=== PATIENT | female | born 1970 | race Caucasian/White ===

== ENCOUNTER 2022-09-30 17:38 | Inpatient (IN) | payer OTHER, SELFPAY ==
--- NOTE | ~2022-09-30 | CT_ITS ---
EXAMINATION: CT ABDOMEN AND PELVIS WITHOUT CONTRAST CLINICAL INFORMATION: Epigastric pain. Left upper quadrant pain. COMPARISON: Ultrasound abdomen 09/30/2022 TECHNIQUE: Multidetector volumetric imaging was performed from the superior aspect of the liver through the pubic symphysis. Sagittal and coronal reformatted images were obtained on the technologist's workstation. This CT examination was performed using dose optimization techniques as appropriate, variously including the following: *Automated exposure control *Adjustment of mA and/or kV according to patient size (this includes techniques or standardized protocols for targeted exams where dose is matched to indication/reason for exam; i.e. extremities or head) *Use of iterative reconstruction technique DLP: 1187 mGy-cm FINDINGS: LUNG BASES: The visualized lung bases are unremarkable. LIVER, GALLBLADDER, AND BILIARY TREE: The liver is normal in size, shape, and attenuation. No focal hepatic lesion or biliary ductal dilatation is present. Gallstones within the gallbladder. No edema around the gallbladder. No bile duct dilatation. PANCREAS: Unremarkable. SPLEEN: Unremarkable. ADRENAL GLANDS: Unremarkable. KIDNEYS AND URETERS: The kidneys are normal in size, shape, and attenuation. No hydronephrosis, hydroureter, or calculi seen. No perinephric stranding. BLADDER: Unremarkable. GASTROINTESTINAL TRACT: The small and large bowel are unremarkable. Moderate volume of stool in the colon. Most of formed stool is in the right colon. The appendix is unremarkable. ABDOMINAL WALL: No significant hernia is appreciated. LYMPH NODES: Normal. VASCULAR: Vascular calcifications of aorta and iliac arteries. No aneurysm. PELVIC VISCERA: Uterus is anteverted. No adnexal abnormality. OSSEOUS STRUCTURES: Multilevel degenerative spondylosis spine. Vacuum disc phenomenon L5-S1. No spondylolysis or spondylolisthesis. CT/CT abdomen pelvis wo IV con IMPRESSION: 1. No acute abnormality CT scan abdomen pelvis. 2. Cholelithiasis. No acute change of the gallbladder. No bile duct dilatation. Fleischner guidelines were followed.
--- NOTE | ~2022-09-30 | US_ITS ---
EXAMINATION: US ABDOMEN LIMITED CLINICAL INFORMATION: Right upper quadrant pain. COMPARISON: None available. TECHNIQUE: Real-time imaging of the right upper quadrant abdominal viscera. FINDINGS: PANCREAS: The visualized proximal portion of the pancreas is unremarkable. The distal portion is obscured secondary to overlying bowel gas. LIVER: The liver is normal in size. The liver contour is normal. There is increased liver parenchymal echogenicity, consistent with hepatic steatosis. No focal hepatic lesion. There is no intrahepatic biliary duct dilatation seen. GALLBLADDER: Cholelithiasis is noted. No significant gallbladder wall thickening or surrounding inflammation. COMMON BILE DUCT: Normal in caliber measuring 0.3 cm in diameter. RIGHT KIDNEY: No hydronephrosis. No renal calculi or focal parenchymal lesions. The kidney measures 12.1 cm in maximum dimension. FREE FLUID: None. US/US abdomen limited IMPRESSION: 1. Cholelithiasis without additional findings of cholecystitis. 2. Hepatic steatosis.
--- NOTE | 2022-09-30 17:55 | ED_ITS ---
HPI - Abdominal Pain General Chief Complaint: Abdominal Pain Stated Complaint: gallbladder pain? Time Seen by Provider: 09/30/22 20:25 Source: patient Mode of arrival: ambulatory Limitations: no limitations History of Present Illness HPI narrative: Patient is a 52 year old female with a history of gallstones, type 2 diabetes with hx of DKA presenting with epigastric pain and nausea after eating for the past week and constipation for the past month. She reports that after eating she experiences pain in the epigastric region with nausea but denies vomitting. She began a keto diet one month ago and has had constipation ever since with minimal relief with miralax. She reports her last bowel movement being yesterday and a history of incidental gallstone finding on CT last year, however has never been symptomatic or received treatment for it. She denies chest pain, shortness of breath, vomiting, changes in urine, headaches, dizziness. Related Data Allergies Allergy/AdvReac Type Severity Reaction Status Date / Time No Known Allergies Allergy Verified 09/30/22 18:01 Review of Systems Review of Systems Constitutional : + Weight loss, No Fever, No Chills, No Fatigue, No Malaise Cardiovascular : No Chest Pain, No SOB, No Dyspnea on Exertion, No Orthopnea, No Edema, No Palpitations Respiratory : No Cough, No Sputum, No Wheezing Gastrointestinal : + Nausea, No Vomiting, No Diarrhea, + Constipation, + abdominal Pain, No Hematochezia, No Melena Genitourinary : No Dysuria, No Urinary Frequency, No Hematuria, Musculoskeletal : No joint pain, No Myalgias, No Joint Swelling Skin : No Skin Lesions, No rash Neuro : No Weakness, No Numbness, No Dizziness, No Headache Psych : No Anxiety/Panic, No Depression All other systems reviewed and are negative Yes all other systems are reviewed and are negative [facility] Past Medical History Attestation statement: The following information was validated with the patient. Source: old records reviewed and nursing notes reviewed Social History Social History Advance Directives: No Advance Directives Information Provided: No Physical Exam ED Vital Signs: Vital Signs - 24 hr 09/30/22 17:56 09/30/22 22:52 Temperature 97.4 F 98.2 F Pulse Rate 99 82 Respiratory Rate 20 16 Blood Pressure 190/100 H 137/60 Pulse Oximetry 98 98 Oxygen Delivery Method Room Air Room Air BMI result Body Mass Index 48.6 vss Appearance: Alert.? Oriented X3.? No acute distress.? Head: Normocephalic, atraumatic, no step-offs or deformities Eyes: Pupils equal, round and reactive to light.? ENT: Pharynx normal.? Neck: Normal inspection.? Neck supple.? CVS: Normal heart rate and rhythm.? Pulses normal.? Respiratory: No respiratory distress.? Breath sounds normal.? Abdomen: Soft without abdominal tenderness to palpation. Normoactive bowel sounds. Skin: Skin warm and dry.? Normal skin color.? Normal skin turgor.? Extremities: No lower extremity edema.? No calf ttp. 5/5 strength to bilateral upper and lower extremities Neuro: Oriented X 3.? No motor deficit.? No sensory deficit. CN 2-12 intact Course Course Course Narrative: RME - 50 yo female with history of morbid obesity, history of gallstones, diabetes w/ hx DKA now off insulin who presents to the ER for evaluation of constipation x1 month along with RUQ pain on/off for a week. Pain is worse with food and affecting her sleep. +nausea but no vomiting. last had BM today, very light colored and minimal. Also reports right shoulder and right scapular pain. Glucose has been in the 400s at home. They are here visiting from [place] and go home next week. Plan: POC now, labs and RUQ U/S Reevaluation(s) Reevaluation #1: CBC unremarkable. POC glucose 324. Chemistry remarkable for BUN 8, anion gap 23, random glucose 346. Time: 21:28 Reevaluation #2: Abdominal ultrasound shows cholelithiasis without additional findings of cholecystitis and hepatic steatosis. Patient has a negative Lay sign, no tenderness to palpation on my exam, I do not suspect acute cholecystitis no signs of acute choledocholithiasis or cholangitis. Time: 21:28 Medical Decision Making Medical Decision Making [facility] Narrative: 2120 Patient is a 52 year old female presenting with epigastric pain and nausea after eating for one week and constipation for one month after beginning keto diet. Physical exam benign Differential diagnosis includes acute cholecystitis, pain likely secondary to constipation. Other differentials include DKA, gastritis.. Unlikely cholangitis, choledocholithiasis, diverticulitis, pancreatitis, appendicitis, acute abdomen. Plan labs, imaging, urine. Differential Diagnosis Differential Diagnoses: The differential diagnosis associated with the presen tation includes Differential diagnosis includes acute cholecystitis, pain likely secondary to constipation. Other differentials include DKA, gastritis.. Unlikely cholangitis, choledocholithiasis, diverticulitis, pancreatitis, appendicitis, acute abdomen. Admission/Observation Consideration of admission/observation: Escalation of care including admission/observation considered Lab Data MDM Lab Attestation statement: I reviewed the patient's lab results. 09/30/22 18:45 09/30/22 18:45 Labs: Lab Results 09/30/22 09/30/22 09/30/22 Range/Units 18:05 18:45 18:45 WBC 9.1 (4.8-10.8) X10*3/uL RBC 5.55 H (4.20-5.50) X10*6/uL Hgb 15.9 (12.0-16.0) g/dl Hct 47.7 H (37.0-47.0) % MCV 85.9 (80.0-98.0) fL MCH 28.6 (27.0-33.0) pg MCHC 33.3 (31.0-35.0) g/dl RDW 13.3 (11.0-16.0) % Plt Count 296 (160-400) X10*3/uL MPV 10.2 (9.4-12.3) fL Immature Gran % (Auto) 0.5 H (0.0-0.4) % Neut % (Auto) 64.8 (45-73) % Lymph % (Auto) 25.4 (20-40) % [place] % (Auto) 7.3 (2-11) % Eos % (Auto) 1.3 (0-4) % Baso % (Auto) 0.7 (0-2) % Lymph # (Auto) 2.3 (1.2-4.9) X10*3/uL [place] # (Auto) 0.7 (0.1-1.2) X10*3/uL Eos # (Auto) 0.1 (0.0-0.4) X10*3/uL Baso # (Auto) 0.1 (0.0-0.2) X10*3/uL Abs Immat Gran (auto) 0.05 H (0.00-0.03) X10*3/uL Absolute Neuts (auto) 5.9 (2.0-8.3) x10*3/uL Absolute Nucleated RBC 0.000 (0.0-0.012) X10*3/uL Nucleated RBC % (auto) 0.0 (0.0-0.2) /100WBC Sodium 135 (135-145) mmol/L Potassium 4.1 (3.3-5.1) mmol/L Chloride 100 (96-108) mmol/L Carbon Dioxide 16 L (22-29) mmol/L Anion Gap 23 H (12-20) BUN 8 L (9-16) mg/dL Creatinine 1.22 (0.5-1.4) mg/dL Estim Creat Clear Calc 74.2 Estimated GFR 46 POC Glucose 307 H (60-115) mg/dL Random Glucose 346 H (60-115) mg/dL Calcium 10.1 (8.4-10.2) mg/dL Magnesium 1.9 (1.6-2.6) mg/dL Total Bilirubin 0.4 (0.0-1.0) mg/dL Direct Bilirubin 0.1 (0.0-0.5) mg/dL AST 12 (5-31) U/L ALT 15 (0-31) U/L Alkaline Phosphatase 96 (39-117) U/L Total Protein 7.3 (6.5-8.0) g/dL Albumin 4.1 (3.5-5.0) g/dL Urine Color Urine Appearance Urine pH (5.0-9.0) Ur Specific [place] (1.005-1.025) Urine Protein (Neg-Trace) mg/dL Urine Glucose (UA) (Negative) mg/dL Urine Ketones (Negative) mg/dL Urine Blood (Negative) Urine Nitrite (Negative) Ur Leukocyte Esterase (Negative) Urine RBC (0-2) /HPF Urine WBC (0-5) /HPF Ur Squamous Epith Cells (0-2) /HPF Urine Bacteria (None Seen) Hyaline Casts (0-2) /LPF Acetone, Qual (Negative) 09/30/22 09/30/22 09/30/22 Range/Units 21:15 21:27 21:58 WBC (4.8-10.8) X10*3/uL RBC (4.20-5.50) X10*6/uL Hgb (12.0-16.0) g/dl Hct (37.0-47.0) % MCV (80.0-98.0) fL MCH (27.0-33.0) pg MCHC (31.0-35.0) g/dl RDW (11.0-16.0) % Plt Count (160-400) X10*3/uL MPV (9.4-12.3) fL Immature Gran % (Auto) (0.0-0.4) % Neut % (Auto) (45-73) % Lymph % (Auto) (20-40) % [place] % (Auto) (2-11) % Eos % (Auto) (0-4) % Baso % (Auto) (0-2) % Lymph # (Auto) (1.2-4.9) X10*3/uL [place] # (Auto) (0.1-1.2) X10*3/uL Eos # (Auto) (0.0-0.4) X10*3/uL Baso # (Auto) (0.0-0.2) X10*3/uL Abs Immat Gran (auto) (0.00-0.03) X10*3/uL Absolute Neuts (auto) (2.0-8.3) x10*3/uL Absolute Nucleated RBC (0.0-0.012) X10*3/uL Nucleated RBC % (auto) (0.0-0.2) /100WBC Sodium (135-145) mmol/L Potassium (3.3-5.1) mmol/L Chloride (96-108) mmol/L Carbon Dioxide (22-29) mmol/L Anion Gap (12-20) BUN (9-16) mg/dL Creatinine (0.5-1.4) mg/dL Estim Creat Clear Calc Estimated GFR POC Glucose 324 H (60-115) mg/dL Random Glucose (60-115) mg/dL Calcium (8.4-10.2) mg/dL Magnesium (1.6-2.6) mg/dL Total Bilirubin (0.0-1.0) mg/dL Direct Bilirubin (0.0-0.5) mg/dL AST (5-31) U/L ALT (0-31) U/L Alkaline Phosphatase (39-117) U/L Total Protein (6.5-8.0) g/dL Albumin (3.5-5.0) g/dL Urine Color Yellow Urine Appearance Clear Urine pH 5.5 (5.0-9.0) Ur Specific [place] >= 1.030 H (1.005-1.025) Urine Protein 100 (2+) H (Neg-Trace) mg/dL Urine Glucose (UA) >=1000 H (Negative) mg/dL Urine Ketones >=160 (Negative) mg/dL Urine Blood Negative (Negative) Urine Nitrite Negative (Negative) Ur Leukocyte Esterase Negative (Negative) Urine RBC 0-2 (0-2) /HPF Urine WBC 0-5 (0-5) /HPF Ur Squamous Epith Cells 3-5 (0-2) /HPF Urine Bacteria None Seen (None Seen) Hyaline Casts 11-20 (0-2) /LPF Acetone, Qual Small H (Negative) Independent Interpretation I performed an independent interpretation of an: Ultrasound (US/US abdomen limited IMPRESSION: 1. Cholelithiasis without additional findings of cholecystitis. 2. Hepatic steatosis. ) and CT Scan Radiology Impression Discussion of test interpretation with radiology: I have reviewed the radiologist's reading. External Record Review External record reviewed: Inpatient record, Office record, Outpatient record, Prior outpatient labs, Primary care record and Outside ED record Core Measures AMI core measures followed: Yes Measure exclusions: not indicated Medications Administered Generic Name Dose Route Start Last Admin Trade Name Freq PRN Reason Stop Dose Admin Sodium Chloride 1,000 mls @ 999 mls/hr 09/30/22 22:30 09/30/22 22:33 Ns IV 09/30/22 23:30 999 mls/hr .Q1H1M CINTHIA Administration Discontinued Medications Generic Name Dose Route Start Last Admin Trade Name Freq PRN Reason Stop Dose Admin Docusate Sodium 100 mg 09/30/22 22:46 09/30/22 23:06 Docusate Sodium 100 Mg Capsule PO 09/30/22 22:47 100 mg ONCE ONE Administration Sodium Chloride 1,000 mls @ 999 mls/hr 09/30/22 20:30 09/30/22 21:22 Ns IV 09/30/22 21:30 999 mls/hr .Q1H1M CINTHIA Administration Insulin Human Regular 5 unit 09/30/22 22:25 09/30/22 22:31 Insulin Regular, Human 100 Unit/Ml 3 Ml Vial IVPUSH 09/30/22 22:26 5 unit ONCE ONE Administration Ketorolac Tromethamine 30 mg 09/30/22 21:40 09/30/22 22:25 Ketorolac Tromethamine 15 Mg/Ml Vial IM 09/30/22 21:41 Not Given ONCE ONE Senna 15 ml 09/30/22 22:46 09/30/22 23:06 Senna [place] Extract Oral Syrup 15 Ml Syrup PO 09/30/22 22:47 15 ml ONCE ONE Administration Critical Care Time Critical Care Time Critical Care Time: No Discharge Plan Discharge Clinical Impression: Abdominal pain, DKA (diabetic ketoacidosis), Cholelithiasis Patient Disposition: Admitted As Inpatient
[2022-09-30 17:56] VITALS: BP 190/100; PULSE 99; RESP 20; TEMP 36.3; O2SAT 98; BMI 48.6
[2022-09-30 18:10] LABS: Glucose, Whole Blood 307 mg/dL (60-115)
[2022-09-30 18:51] LABS: MANUAL DIFF FLAG NO
[2022-09-30 18:52] LABS: Basophils Absolute Auto 0.1 X10*3/uL (0.0-0.2); Basophils Percent Auto 0.7 % (0-2); Eosinophils Absolute Auto 0.1 X10*3/uL (0.0-0.4); Eosinophils Percent Auto 1.3 % (0-4); Hematocrit 47.7 % (37.0-47.0); Hemoglobin 15.9 g/dl (12.0-16.0); Imm Gran Abs Auto 0.05 X10*3/uL (0.00-0.03); Imm Gran Pct Auto 0.5 % (0.0-0.4); Lymphocytes Absolute Auto 2.3 X10*3/uL (1.2-4.9); Lymphocytes Percent Auto 25.4 % (20-40); Mean Corpuscular HGB Conc 33.3 g/dl (31.0-35.0); Mean Corpuscular Hemoglobin 28.6 pg (27.0-33.0); Mean Corpuscular Volume 85.9 fL (80.0-98.0); Mean Platelet Volume 10.2 fL (9.4-12.3); Monocytes Absolute Auto 0.7 X10*3/uL (0.1-1.2); Monocytes Percent Auto 7.3 % (2-11); Neutrophils Absolute Auto 5.9 x10*3/uL (2.0-8.3); Neutrophils Percent Auto 64.8 % (45-73); Platelet Count 296 X10*3/uL (160-400); Red Blood Count 5.55 X10*6/uL (4.20-5.50); Red Cell Distribution Width 13.3 % (11.0-16.0); White Blood Count 9.1 X10*3/uL (4.8-10.8)
[2022-09-30 19:11] LABS: Alanine Aminotransferase 15 U/L (0-31); Albumin Level 4.1 g/dL (3.5-5.0); Alkaline Phosphatase 96 U/L (39-117); Anion Gap 23 (12-20); Aspartate Amino Transferase 12 U/L (5-31); Bilirubin Direct 0.1 mg/dL (0.0-0.5); Bilirubin Total 0.4 mg/dL (0.0-1.0); Blood Urea Nitrogen 8 mg/dL (9-16); Calcium 10.1 mg/dL (8.4-10.2); Carbon Dioxide 16 mmol/L (22-29); Chloride 100 mmol/L (96-108); Creatinine Clr Calc Pharmacy 74.2; Estimated Glomerular Filt Rate 46; Glucose Random 346 mg/dL (60-115); Magnesium 1.9 mg/dL (1.6-2.6); Potassium 4.1 mmol/L (3.3-5.1); Sodium 135 mmol/L (135-145); Total Protein 7.3 g/dL (6.5-8.0)
[2022-09-30 21:21] LABS: Glucose, Whole Blood 324 mg/dL (60-115)
[2022-09-30] MEDS: 0.9 % Sodium Chloride 1,000 ML 999 ML IV ×2 (21:22→22:33)
[2022-09-30 21:37] LABS: Appearance Urine Clear; Color Urine Yellow; Glucose Urine UA >=1000 mg/dL (Negative); Leukocyte Esterase Urine Negative (Negative); Nitrite Urine Negative (Negative); PH 5.5 (5.0-9.0); Specific Gravity - Urine >= 1.030 (1.005-1.025); UMIC TRIGGER UACC YES; Urine Blood Negative (Negative); Urine Ketones >=160 mg/dL (Negative); Urine Protein 100 (2+) mg/dL (Neg-Trace)
[2022-09-30 21:44] LABS: Bacteria Urine None Seen (None Seen); RBC Urine 0-2 /HPF (0-2); WBC Urine 0-5 /HPF (0-5)
[2022-09-30 22:16] LABS: Acetone, serum QL Small (Negative)
[2022-09-30] MEDS: Insulin Regular, Human 100 UNIT/ML 3 ML VIAL IVPUSH (22:31)
[2022-09-30 22:52] VITALS: BP 137/60; PULSE 82; RESP 16; TEMP 36.8; O2SAT 98
[2022-09-30] MEDS: Docusate Sodium 100 MG CAPSULE PO (23:06)
[2022-09-30 23:45] LABS: Lipase 25 U/L (8-78)
[2022-09-30 23:56] LABS: VBG Base Excess -11.3 mmol/L; VBG HCO3 10 mmol/L (22-26); VBG pCO2 16 mmHg; VBG pH 7.39 (7.32-7.43); VBG pO2 93 mmHg
[2022-10-01 00:02] LABS: Venous Blood Gas Refer to POC result
[2022-10-01 00:16] LABS: Alanine Aminotransferase 16 U/L (0-31); Albumin Level 3.8 g/dL (3.5-5.0); Alkaline Phosphatase 85 U/L (39-117); Anion Gap 22 (12-20); Aspartate Amino Transferase 13 U/L (5-31); Bilirubin Total 0.4 mg/dL (0.0-1.0); Blood Urea Nitrogen 7 mg/dL (9-16); Calcium 9.4 mg/dL (8.4-10.2); Carbon Dioxide 13 mmol/L (22-29); Chloride 103 mmol/L (96-108); Creatinine Clr Calc Pharmacy 80.9; Estimated Glomerular Filt Rate 51; Glucose Random 332 mg/dL (60-115); Potassium 3.9 mmol/L (3.3-5.1); Sodium 134 mmol/L (135-145); Total Protein 7.3 g/dL (6.5-8.0)
[2022-10-01] MEDS: 0.9 % Sodium Chloride 1,000 ML 999 ML IV ×3 (01:58→01:59)
[2022-10-01] MEDS: Insulin Regular, Human 100 UNIT/ML 3 ML VIAL 10 UNIT IVPUSH ×2 (01:59→03:20)
[2022-10-01 02:06] LABS: Alanine Aminotransferase 12 U/L (0-31); Albumin Level 3.5 g/dL (3.5-5.0); Alkaline Phosphatase 80 U/L (39-117); Anion Gap 21 (12-20); Aspartate Amino Transferase 15 U/L (5-31); Bilirubin Total 0.3 mg/dL (0.0-1.0); Blood Urea Nitrogen 7 mg/dL (9-16); Calcium 9.1 mg/dL (8.4-10.2); Carbon Dioxide 17 mmol/L (22-29); Chloride 104 mmol/L (96-108); Creatinine Clr Calc Pharmacy 67.1; Estimated Glomerular Filt Rate 41; Glucose Random 325 mg/dL (60-115); Potassium 4.7 mmol/L (3.3-5.1); Sodium 137 mmol/L (135-145); Total Protein 6.4 g/dL (6.5-8.0)
[2022-10-01 02:33] VITALS: BP 146/50; PULSE 82; RESP 16; TEMP 36.5; O2SAT 99
--- NOTE | 2022-10-01 02:40 | PC.NURSE ---
med req completed
[2022-10-01 02:57] LABS: Glucose, Whole Blood 272 mg/dL (60-115)
--- NOTE | 2022-10-01 02:58 | PC.NURSE ---
POC of [address] Timmons. New order to give another 10u of insulin and start D5NS at 100mls/hr. Pt aware of plan of care.
--- NOTE | 2022-10-01 03:07 | P.HPHOSP_ITS ---
History of Present Illness Date of Service: 10/01/22 Chief Complaint: Abdominal Pain This is a 52-year-old female with pertinent history of diabetes, not on prescription medications who presents to the emergency department for evaluation of abdominal pain and nausea. Patient states she stopped taking prescription medications for diabetes and instead is trying natural therapy for it. She does have a history of DKA. Patient states she had generalized abdominal discomfort on the day of presentation, nonradiating, constant and without any relieving factors. Also had associated nausea with p.o. intake. Patient states her bowel movements have becoming fewer since she started with keto diet 1 month ago. She denies fever, chills, chest discomfort, palpitations, shortness of breath, changes in urinary habits. In the emergency department, patient was found to be in DKA Review of Systems Constitutional: Constitutional: Reports fatigue and Reports malaise Cardiovascular: Cardiovascular: Reports no additional cardiovascular complaints Respiratory: Respiratory: Reports no additional respiratory complaints Gastrointestinal: Gastrointestinal: Reports abdominal pain and Reports nausea Genitourinary: Genitourinary: Reports no additional female genitourinary complaints Musculoskeletal: Musculoskeletal: Reports no additional musculoskeletal complaints Endocrine: Endocrine: Reports fatigue [facility] Medical History Diabetes mellitus Pertinent family history: No family history of early CAD Social History Patient Tobacco Use Status: Never used Tobacco Meds Allergies Allergy/AdvReac Type Severity Reaction Status Date / Time No Known Allergies Allergy Verified 09/30/22 18:01 Active Medications: Current Medications Dextrose/Sodium Chloride (D5ns) 1,000 mls @ 100 mls/hr IVCONT .Q10H [facility] Insulin Glargine (Insulin Glargine,Hum.Rec.Anlog 100 Unit/Ml 10 Ml Vial) 25 unit SUBCUT BEDTIME [facility] Home Medications Medication Instructions Recorded Confirmed Last Taken Type berberine-herbal comb no.18 500 mg PO BID 10/01/22 10/01/22 Unknown History Physical Exam Vital Signs and Narrative: Vital Signs: Last Vital Signs Temp 97.7 F 10/01/22 02:33 Pulse 82 10/01/22 02:33 Resp 16 10/01/22 02:33 BP 146/50 H 10/01/22 02:33 Pulse Ox 99 10/01/22 02:33 O2 Del Method Room Air 10/01/22 02:33 BMI result Body Mass Index 48.6 Middle-aged female lying in bed in no distress Neck supple, no JVD Regular rate and rhythm, S1-S2 heard Regular breath sounds bilaterally, no wheezing or crackles appreciated Abdomen soft nontender, no guarding, no rigidity Patient is awake, alert and oriented to self, place, time and person ; no focal motor deficit Psych: Normal mood No pedal edema Results Labs 09/30/22 18:45 10/01/22 01:39 Labs: Laboratory Results - last 24 hr 09/30/22 09/30/22 09/30/22 18:05 18:45 18:45 MCV 85.9 MCH 28.6 MCHC 33.3 RDW 13.3 Plt Count 296 MPV 10.2 Immature Gran % (Auto) 0.5 H Neut % (Auto) 64.8 Lymph % (Auto) 25.4 [place] % (Auto) 7.3 Eos % (Auto) 1.3 Baso % (Auto) 0.7 Lymph # (Auto) 2.3 [place] # (Auto) 0.7 Eos # (Auto) 0.1 Baso # (Auto) 0.1 Abs Immat Gran (auto) 0.05 H Absolute Neuts (auto) 5.9 Absolute Nucleated RBC 0.000 Nucleated RBC % (auto) 0.0 VBG pH VBG pCO2 VBG pO2 VBG HCO3 VBG O2 Saturation VBG Base Excess Anion Gap 23 H Estim Creat Clear Calc 74.2 Estimated GFR 46 POC Glucose 307 H Random Glucose 346 H Calcium 10.1 Magnesium 1.9 Total Bilirubin 0.4 Direct Bilirubin 0.1 AST 12 ALT 15 Alkaline Phosphatase 96 Total Protein 7.3 Albumin 4.1 Lipase 25 Urine Color Urine Appearance Urine pH Ur Specific [place] Urine Protein Urine Glucose (UA) Urine Ketones Urine Blood Urine Nitrite Ur Leukocyte Esterase Urine RBC Urine WBC Ur Squamous Epith Cells Urine Bacteria Hyaline Casts Acetone, Qual 09/30/22 09/30/22 09/30/22 21:15 21:27 21:58 MCV MCH MCHC RDW Plt Count MPV Immature Gran % (Auto) Neut % (Auto) Lymph % (Auto) [place] % (Auto) Eos % (Auto) Baso % (Auto) Lymph # (Auto) [place] # (Auto) Eos # (Auto) Baso # (Auto) Abs Immat Gran (auto) Absolute Neuts (auto) Absolute Nucleated RBC Nucleated RBC % (auto) VBG pH VBG pCO2 VBG pO2 VBG HCO3 VBG O2 Saturation VBG Base Excess Anion Gap Estim Creat Clear Calc Estimated GFR POC Glucose 324 H Random Glucose Calcium Magnesium Total Bilirubin Direct Bilirubin AST ALT Alkaline Phosphatase Total Protein Albumin Lipase Urine Color Yellow Urine Appearance Clear Urine pH 5.5 Ur Specific [place] >= 1.030 H Urine Protein 100 (2+) H Urine Glucose (UA) >=1000 H Urine Ketones >=160 Urine Blood Negative Urine Nitrite Negative Ur Leukocyte Esterase Negative Urine RBC 0-2 Urine WBC 0-5 Ur Squamous Epith Cells 3-5 Urine Bacteria None Seen Hyaline Casts 11-20 Acetone, Qual Small H 09/30/22 09/30/22 09/30/22 21:59 23:48 23:50 MCV MCH MCHC RDW Plt Count MPV Immature Gran % (Auto) Neut % (Auto) Lymph % (Auto) [place] % (Auto) Eos % (Auto) Baso % (Auto) Lymph # (Auto) [place] # (Auto) Eos # (Auto) Baso # (Auto) Abs Immat Gran (auto) Absolute Neuts (auto) Absolute Nucleated RBC Nucleated RBC % (auto) VBG pH 7.39 VBG pCO2 16 VBG pO2 93 VBG HCO3 10 L VBG O2 Saturation 99.0 VBG Base Excess -11.3 Anion Gap 22 H Estim Creat Clear Calc 80.9 Estimated GFR 51 POC Glucose Random Glucose 332 H Calcium 9.4 D Magnesium Total Bilirubin 0.4 Direct Bilirubin AST 13 ALT 16 Alkaline Phosphatase 85 Total Protein 7.3 Albumin 3.8 Lipase Cancelled Urine Color Urine Appearance Urine pH Ur Specific [place] Urine Protein Urine Glucose (UA) Urine Ketones Urine Blood Urine Nitrite Ur Leukocyte Esterase Urine RBC Urine WBC Ur Squamous Epith Cells Urine Bacteria Hyaline Casts Acetone, Qual 10/01/22 10/01/22 01:39 02:34 MCV MCH MCHC RDW Plt Count MPV Immature Gran % (Auto) Neut % (Auto) Lymph % (Auto) [place] % (Auto) Eos % (Auto) Baso % (Auto) Lymph # (Auto) [place] # (Auto) Eos # (Auto) Baso # (Auto) Abs Immat Gran (auto) Absolute Neuts (auto) Absolute Nucleated RBC Nucleated RBC % (auto) VBG pH VBG pCO2 VBG pO2 VBG HCO3 VBG O2 Saturation VBG Base Excess Anion Gap 21 H Estim Creat Clear Calc 67.1 Estimated GFR 41 POC Glucose 272 H Random Glucose 325 H Calcium 9.1 Magnesium Total Bilirubin 0.3 Direct Bilirubin AST 15 ALT 12 Alkaline Phosphatase 80 Total Protein 6.4 L Albumin 3.5 Lipase Urine Color Urine Appearance Urine pH Ur Specific [place] Urine Protein Urine Glucose (UA) Urine Ketones Urine Blood Urine Nitrite Ur Leukocyte Esterase Urine RBC Urine WBC Ur Squamous Epith Cells Urine Bacteria Hyaline Casts Acetone, Qual Imaging Radiologist's Impressions: Impressions Abdomen Ultrasound 09/30/22 18:16 IMPRESSION: 1. Cholelithiasis without additional findings of cholecystitis. 2. Hepatic steatosis. Abdomen/Pelvis CT 09/30/22 22:22 IMPRESSION: 1. No acute abnormality CT scan abdomen pelvis. 2. Cholelithiasis. No acute change of the gallbladder. No bile duct dilatation. Fleischner guidelines were followed. Assessment and Plan (1) DKA (diabetic ketoacidosis): Status: Acute Plan This is a 52-year-old female with pertinent history of diabetes, not on prescription medications who presents to the emergency department for evaluation of abdominal pain and nausea. #. Diabetic ketoacidosis. Due to noncompliance with antihyperglycemics. Noted improvement in bicarb and anion gap with IV crystalloids and IV insulin. Initiating basal plus regimen. Monitor blood glucose and optimize regimen. Counseled regarding compliance with antihyperglycemics. DVT prophylaxis: Lovenox Full code Diabetic diet Admit as inpatient and will require two night minimum hospital stay for close monitoring of blood sugars. Time Spent With Patient Time: Total time managing care of this patient today ____ minutes. Quality Stroke Does the patient have a stroke diagnosis?: No VTE Prior VTE?: No VTE Risk Level:: Medical - moderate - high VTE Device Contraindication: Treatment Not Indicated VTE Drug Contraindication: N/A - Med Ordered
--- NOTE | 2022-10-01 03:09 | PC.NURSE ---
Per Dr. Singleton D5NS to run for at 100mls/hr for the next two hours and then to be stopped. Pt aware of plan of care.
[2022-10-01] MEDS: Dextrose 5 % and 0.9 % NaCl 1,000 ML 100 ML IVCONT (03:18)
[2022-10-01] MEDS: Insulin Glargine,Hum.rec.anlog 100 UNIT/ML 10 ML VIAL 25 UNIT SUBCUT ×2 (03:18→20:35)
[2022-10-01] MEDS: Enoxaparin Sodium 40 MG/0.4 ML SYRINGE SUBCUT (03:45)
[2022-10-01 03:58] LABS: Glucose, Whole Blood 284 mg/dL (60-115)
[2022-10-01 06:11] LABS: MANUAL DIFF FLAG NO
[2022-10-01 06:14] LABS: Basophils Percent Auto 0.4 % (0-2); Eosinophils Absolute Auto 0.1 X10*3/uL (0.0-0.4); Eosinophils Percent Auto 1.3 % (0-4); Hematocrit 43.2 % (37.0-47.0); Hemoglobin 14.2 g/dl (12.0-16.0); Imm Gran Abs Auto 0.04 X10*3/uL (0.00-0.03); Imm Gran Pct Auto 0.4 % (0.0-0.4); Lymphocytes Absolute Auto 2.8 X10*3/uL (1.2-4.9); Mean Corpuscular HGB Conc 32.9 g/dl (31.0-35.0); Mean Corpuscular Volume 88.3 fL (80.0-98.0); Mean Platelet Volume 11.2 fL (9.4-12.3); Monocytes Absolute Auto 0.9 X10*3/uL (0.1-1.2); Monocytes Percent Auto 9.1 % (2-11); Neutrophils Absolute Auto 5.7 x10*3/uL (2.0-8.3); Neutrophils Percent Auto 59.8 % (45-73); Platelet Count 281 X10*3/uL (160-400); Red Blood Count 4.89 X10*6/uL (4.20-5.50); Red Cell Distribution Width 13.6 % (11.0-16.0); White Blood Count 9.5 X10*3/uL (4.8-10.8)
[2022-10-01 06:25] LABS: Estimated Average Glucose 249 mg/dL; Hemoglobin A1c % 10.3 %
[2022-10-01 06:28] LABS: Glucose, Whole Blood 339 mg/dL (60-115)
[2022-10-01] MEDS: ondansetron HCL 4 MG/2 ML VIAL IVPUSH (06:28)
[2022-10-01] MEDS: Insulin Lispro 100 UNIT/ML 3 ML VIAL SUBCUT ×6 (06:28→19:05)
[2022-10-01 06:37] LABS: Chloride 108 mmol/L (96-108); Potassium 4.6 mmol/L (3.3-5.1); Sodium 137 mmol/L (135-145)
[2022-10-01 06:38] LABS: Anion Gap 17 (12-20); Blood Urea Nitrogen 6 mg/dL (9-16); Calcium 8.4 mg/dL (8.4-10.2); Carbon Dioxide 17 mmol/L (22-29); Creatinine Clr Calc Pharmacy 70.2; Estimated Glomerular Filt Rate 43
[2022-10-01 06:39] LABS: Glucose Random 357 mg/dL (60-115)
--- NOTE | 2022-10-01 06:40 | PC.NURSE ---
critical glucose called in by chemistry. glucose of 357. this rn made marcelle rn aware of result. this rn made dr bruce aware of critical result. awaiting new orders
[2022-10-01] MEDS: Insulin Regular, Human 100 UNIT/ML 3 ML VIAL IVPUSH (06:49)
--- NOTE | 2022-10-01 06:51 | PC.NURSE ---
D5NS stopped as ordered. Pt received a total of 100ml of D5NS as pt was ambulatory throughout infusion and infusion was stopped several times.
--- NOTE | 2022-10-01 07:55 | PC.NURSE ---
pct helping pt with adls and checking poc prior to transport to floor
[2022-10-01 08:00] VITALS: BP 141/63; PULSE 82; RESP 16; TEMP 36.1; O2SAT 95
[2022-10-01 08:05] LABS: Glucose, Whole Blood 277 mg/dL (60-115)
[2022-10-01 08:51] LABS: Glucose, Whole Blood 283 mg/dL (60-115)
[2022-10-01] MEDS: Lactated Ringers 1,000 ML 150 ML IVCONT ×3 (08:54→23:56)
--- NOTE | 2022-10-01 09:36 | PHA.MEDREC ---
Pharmacy Consult ? Medication Reconciliation rn has completed the medication reconciliation, PHARMACY REVIEWED.
--- NOTE | 2022-10-01 10:39 | MHC.CM.PN ---
Female 52 DX DKA Patient lives with spouse. They travel for his work. She does not have a PCP. The [facility] for [facility] providers has been given to the patient. She is independent with all functional mobility. DP home self care. Her spouse will pick her up at discharge.
[2022-10-01 11:27] LABS: Glucose, Whole Blood 341 mg/dL (60-115)
[2022-10-01] MEDS: Simethicone 80 MG TAB.CHEW PO (11:38)
[2022-10-01] MEDS: Acetaminophen 325 MG TABLET 650 MG PO (14:30)
[2022-10-01 16:00] VITALS: BP 163/63; PULSE 78; RESP 18; TEMP 36.4; O2SAT 97
[2022-10-01 16:10] LABS: Glucose, Whole Blood 296 mg/dL (60-115)
[2022-10-01 18:41] LABS: Glucose, Whole Blood 399 mg/dL (60-115)
[2022-10-01 19:20] VITALS: BP 157/73; PULSE 87; RESP 19; TEMP 36.3; O2SAT 97
[2022-10-01] MEDS: 0.9 % Sodium Chloride Flush 3 ML SYRINGE IVFLUSH (20:37)
[2022-10-02 00:17] LABS: Glucose, Whole Blood 405 mg/dL (60-115)
[2022-10-02] MEDS: Insulin Lispro 100 UNIT/ML 3 ML VIAL SUBCUT ×7 (00:30→20:49)
[2022-10-02] MEDS: Enoxaparin Sodium 40 MG/0.4 ML SYRINGE SUBCUT (00:31)
[2022-10-02 02:55] LABS: Glucose, Whole Blood 284 mg/dL (60-115)
[2022-10-02 04:00] VITALS: BP 127/61; PULSE 76; RESP 16; TEMP 36.2; O2SAT 96
[2022-10-02 07:02] LABS: Glucose, Whole Blood 271 mg/dL (60-115)
[2022-10-02] MEDS: metFORMIN HCl 500 MG TABLET PO (07:47)
[2022-10-02 07:53] VITALS: BP 137/71; PULSE 66; RESP 16; TEMP 36.6; O2SAT 98
--- NOTE | 2022-10-02 10:18 | P.PNIM_ITS ---
Subjective Subjective Date of Service: 10/02/22 Interval History: Follow-up on DKA, cholelithiasis and possible choledocholithiasis. Interval history: Intermittent abdominal pain, Physical Exam Vital Signs: Vital Signs: Last Vital Signs Temp 97.8 F 10/02/22 07:53 Pulse 66 10/02/22 07:53 Resp 16 10/02/22 07:53 BP 137/71 10/02/22 07:53 Pulse Ox 98 10/02/22 07:53 O2 Del Method Room Air 10/02/22 07:53 BMI result Body Mass Index 48.6 Const: Other: General: AO X 3, no acute distress Resp: CTA bilateral CVS: S1,S2,RRR GI: +BS, NT, mild abdominal tenderness Skin: No rash Neuro: motor grossly intact Psych: appropriate affect Objective Data Active Medications Acetaminophen (Acetaminophen 325 Mg Tablet) 650 mg PO Q6H PRN PRN Reason: Pain, Mild (Pain Scale 1-3) Last Admin: 10/01/22 14:30 Dose: 650 mg Documented By: MARYANN Acetaminophen (Acetaminophen Supp 650 Mg Supp.Rect) 650 mg NM Q6H PRN PRN Reason: Pain, Mild (Pain Scale 1-3) Enoxaparin Sodium (Enoxaparin Sodium 40 Mg/0.4 Ml Syringe) 40 mg SUBCUT Q24H [facility] Last Admin: 10/02/22 00:31 Dose: 40 mg Documented By: ANTONELLA Glucose (Glucose Gel 15 Gm Gel..Gram.) 15 gm PO Q15M PRN; Protocol PRN Reason: per Hypoglycemia Standing Ord. Dextrose (D10) 250 mls @ 750 mls/hr IV Q15M PRN; Protocol PRN Reason: per Hypoglycemia Standing Ord. Lactated Ringer's (Lr) 1,000 mls @ 150 mls/hr IVCONT .Q6H40M [facility] Last Admin: 10/02/22 06:35 Dose: Not Given Documented By: ANTONELLA Non-Admin Reason: IV Running Insulin Glargine (Insulin Glargine,Hum.Rec.Anlog 100 Unit/Ml 10 Ml Vial) 25 unit SUBCUT BEDTIME [facility] Last Admin: 10/01/22 20:35 Dose: 25 unit Documented By: ANTONELLA Insulin Human Lispro (Insulin Lispro 100 Unit/Ml 3 Ml Vial) 0.1 - 10 unit SUBCUT Q4H [facility]; Protocol Last Admin: 10/02/22 07:44 Dose: 6 unit Documented By: FARZANA Melatonin (Melatonin 3 Mg Tablet) 6 mg PO BEDTIME PRN PRN Reason: Insomnia Metformin HCl (Metformin Hcl 500 Mg Tablet) 500 mg PO BIDWM [facility] Last Admin: 10/02/22 07:47 Dose: 500 mg Documented By: FARZANA Ondansetron HCl (Ondansetron Hcl 4 Mg/2 Ml Vial) 4 mg IVPUSH Q8H PRN PRN Reason: Nausea and Vomiting Last Admin: 10/01/22 06:28 Dose: 4 mg Documented By: BRYAN Simethicone (Simethicone 80 Mg Tab.Chew) 80 mg PO QIDWMHS PRN PRN Reason: bloating Last Admin: 10/01/22 11:38 Dose: 80 mg Documented By: MARYANN Sodium Chloride (0.9 % Sodium Chloride Flush 3 Ml Syringe) 3 ml IVFLUSH QSHIFT [facility] Last Admin: 10/02/22 07:46 Dose: Not Given Documented By: FARZANA Non-Admin Reason: IV Running Labs 10/01/22 05:21 10/01/22 05:20 Labs: Laboratory Results - last 24 hr 10/01/22 10/01/22 10/01/22 11:20 16:02 18:37 POC Glucose 341 H 296 H 399 H* 10/02/22 10/02/22 10/02/22 00:13 02:50 06:58 POC Glucose 405 H* 284 H 271 H Microbiology Microbiology Results: Microbiology 09/30/22 22:00 Blood Culture - Preliminary Blood - Venous No growth after 24 hours. 09/30/22 21:59 Blood Culture - Preliminary Blood - Venous No growth after 24 hours. Assessment and Plan (1) Diabetes mellitus: Status: Acute (2) Abdominal pain: Status: Acute (3) DKA (diabetic ketoacidosis): Status: Acute (4) Cholelithiasis: Status: Acute (5) Choledocholithiasis: Status: Acute Plan 52-year-old female with pertinent history of diabetes, not on prescription medications who presents to the emergency department for evaluation of abdominal pain and nausea. #? Diabetic ketoacidosis.? Due to noncompliance with antihyperglycemics.?Treated with IV fluid, insulin, DKA should be resolved. To continue Lantus, and short acting insulin which will be prescribed at dischare. Start Metformin 500 bid. # cholelithiasis/choledocholithiasis--surgery consult, pain management as needed #Morbid obesity--weight loss advised through exercise, and calorie restriction to minimize negative health effects DVT prophylaxis: Lovenox Full code Diabetic diet inpat for DKA, cholelithiasis and choledocholithiasis managemnt Time Spent With Patient Time: Total time managing care of this patient today ____ minutes. Quality Stroke Does the patient have a stroke diagnosis?: No VTE Prior VTE?: No VTE Risk Level:: Medical - moderate - high VTE Device Contraindication: Treatment Not Indicated VTE Drug Contraindication: N/A - Med Ordered
[2022-10-02 10:53] LABS: Glucose, Whole Blood 426 mg/dL (60-115)
[2022-10-02 11:00] LABS: Blood Urea Nitrogen 4 mg/dL (9-16); Calcium 9.1 mg/dL (8.4-10.2); Creatinine Clr Calc Pharmacy 88.8; Estimated Glomerular Filt Rate 57
[2022-10-02 11:03] LABS: Glucose Random 425 mg/dL (60-115)
[2022-10-02 11:06] LABS: Anion Gap 12 (12-20); Carbon Dioxide 23 mmol/L (22-29); Chloride 105 mmol/L (96-108); Potassium 3.3 mmol/L (3.3-5.1); Sodium 137 mmol/L (135-145)
[2022-10-02] MEDS: Lactated Ringers 1,000 ML 150 ML IVCONT ×2 (11:19→18:10)
--- NOTE | 2022-10-02 11:28 | MHC.SHP ---
Pre-Procedural Eval Section A Date of Service: 10/03/22 The patient is an INPATIENT: Yes Changes since office visit: No Cold of Flu in the past 2 weeks, No New Medical Problems, No Changes in Medication and No Patient answered all questions The History & Physical has been completed within 30 days and I have reviewed it.: Yes Section B Chief Complaint: Elevated blood glucose Allergies: Allergies Allergy/AdvReac Type Severity Reaction Status Date / Time No Known Allergies Allergy Verified 09/30/22 18:01 Plan I have reviewed the history and physical and performed a pertinent physical examination on my patient. No changes have occurred unless specified. Time Spent With Patient Time: Total time managing care of this patient today ____ minutes.
[2022-10-02] MEDS: Insulin Lispro 100 UNIT/ML 3 ML VIAL 8 UNIT SUBCUT (12:14)
[2022-10-02 12:15] LABS: Alanine Aminotransferase 17 U/L (0-31); Albumin Level 2.9 g/dL (3.5-5.0); Alkaline Phosphatase 75 U/L (39-117); Aspartate Amino Transferase 15 U/L (5-31); Bilirubin Direct < 0.2 mg/dL (0.0-0.5); Bilirubin Total 0.2 mg/dL (0.0-1.0)
[2022-10-02 12:53] LABS: Glucose, Whole Blood 380 mg/dL (60-115)
[2022-10-02] MEDS: Insulin Regular, Human 100 UNIT/ML 3 ML VIAL 10 UNIT IVPUSH (14:23)
[2022-10-02 15:15] LABS: Glucose, Whole Blood 301 mg/dL (60-115)
--- NOTE | 2022-10-02 15:36 | MHC.CM.PN ---
Per MD rounds Pay august dc today. She has had a surgical consult for Cholelithiasis. She is scheduled for surgery tomorrow. DP home self care. Patients spouse will provide transport at discharge.
[2022-10-02 16:00] VITALS: BP 134/83; PULSE 116; RESP 18; TEMP 36.1; O2SAT 98
[2022-10-02] MEDS: Acetaminophen 325 MG TABLET 650 MG PO (16:46)
[2022-10-02] MEDS: Simethicone 80 MG TAB.CHEW PO (16:46)
[2022-10-02 17:55] LABS: Glucose, Whole Blood 322 mg/dL (60-115)
[2022-10-02 19:07] VITALS: BP 128/62; PULSE 86; RESP 16; TEMP 36.3; O2SAT 96
[2022-10-02 20:37] LABS: Glucose, Whole Blood 328 mg/dL (60-115)
[2022-10-02] MEDS: Insulin Glargine,Hum.rec.anlog 100 UNIT/ML 10 ML VIAL 33 UNIT SUBCUT (20:48)
[2022-10-02] MEDS: Melatonin 3 MG TABLET 6 MG PO (23:22)
[2022-10-03] VITALS (22 sets, daily range): BP systolic 119–182; BP diastolic 61–88; PULSE 56–112; RESP 16–18; TEMP 36–36.7; O2SAT 92–98
[2022-10-03] MEDS: Lactated Ringers 1,000 ML 150 ML IVCONT (00:31)
[2022-10-03 02:59] LABS: Glucose, Whole Blood 276 mg/dL (60-115)
[2022-10-03 08:04] LABS: Glucose, Whole Blood 289 mg/dL (60-115)
[2022-10-03] MEDS: Insulin Lispro 100 UNIT/ML 3 ML VIAL SUBCUT ×5 (08:18→21:03)
--- NOTE | 2022-10-03 09:02 | P.CONGS_ITS ---
History of Present Illness Consult details Consult date: 10/02/22 Narrative: Surgical consult obtained because of symptomatic cholelithiasis. Patient presents with approximate 1-2 day history of right upper quadrant pain of increasing severity associated nausea vomiting. She has had several bouts of this in the past. She otherwise has a regular bowel habits and tolerates her diet. She has never been jaundiced before. Chart was reviewed patient evaluated. Past medical history most noteworthy for diabetes. Sonogram demonstrates cholelithiasis. Liver function tests are within normal limits. [facility] Past Medical History Medical History Diabetes mellitus Social History Social History Household Members: Spouse Housing: House Do you presently have visiting nurse or other home services: No Patient Tobacco Use Status: Never used Tobacco service: No Current occupational status: unemployed Meds Allergies Allergy/AdvReac Type Severity Reaction Status Date / Time No Known Allergies Allergy Verified 09/30/22 18:01 Active Medications: Current Medications Acetaminophen (Acetaminophen 325 Mg Tablet) 650 mg PO Q6H PRN PRN Reason: Pain, Mild (Pain Scale 1-3) Last Admin: 10/02/22 16:46 Dose: 650 mg Acetaminophen (Acetaminophen Supp 650 Mg Supp.Rect) 650 mg [place] Q6H PRN PRN Reason: Pain, Mild (Pain Scale 1-3) Enoxaparin Sodium (Enoxaparin Sodium 40 Mg/0.4 Ml Syringe) 40 mg SUBCUT Q24H [facility] Last Admin: 10/03/22 03:28 Dose: Not Given Glucose (Glucose Gel 15 Gm Gel..Gram.) 15 gm PO Q15M PRN; Protocol PRN Reason: per Hypoglycemia Standing Ord. Dextrose (D10) 250 mls @ 750 mls/hr IV Q15M PRN; Protocol PRN Reason: per Hypoglycemia Standing Ord. Insulin Glargine (Insulin Glargine,Hum.Rec.Anlog 100 Unit/Ml 10 Ml Vial) 33 unit SUBCUT BEDTIME [facility] Last Admin: 10/02/22 20:48 Dose: 33 unit Insulin Human Lispro (Insulin Lispro 100 Unit/Ml 3 Ml Vial) 0.1 - 10 unit SUBCUT QIDACHS [facility]; Protocol Last Admin: 10/03/22 08:18 Dose: 6 unit Insulin Human Lispro (Insulin Lispro 100 Unit/Ml 3 Ml Vial) 5 unit SUBCUT QIDACHS [facility] Last Admin: 10/03/22 08:08 Dose: Not Given Melatonin (Melatonin 3 Mg Tablet) 6 mg PO BEDTIME PRN PRN Reason: Insomnia Last Admin: 10/02/22 23:22 Dose: 6 mg Metformin HCl (Metformin Hcl 500 Mg Tablet) 500 mg PO BIDWM [facility] Last Admin: 10/02/22 16:45 Dose: Not Given Ondansetron HCl (Ondansetron Hcl 4 Mg/2 Ml Vial) 4 mg IVPUSH Q8H PRN PRN Reason: Nausea and Vomiting Last Admin: 10/01/22 06:28 Dose: 4 mg Simethicone (Simethicone 80 Mg Tab.Chew) 80 mg PO QIDWMHS PRN PRN Reason: bloating Last Admin: 10/02/22 16:46 Dose: 80 mg Sodium Chloride (0.9 % Sodium Chloride Flush 3 Ml Syringe) 3 ml IVFLUSH [facility] Last Admin: 10/03/22 00:37 Dose: Not Given Home Medications Medication Instructions Recorded Confirmed Last Taken Type berberine-herbal comb no.18 500 mg PO BID 10/01/22 10/01/22 Unknown History Physical Exam Vital Signs: Vital Signs: Last Vital Signs Temp 96.9 F 10/03/22 07:29 Pulse 71 10/03/22 07:29 Resp 16 10/03/22 07:29 BP 172/76 H 10/03/22 07:29 Pulse Ox 97 10/03/22 07:29 O2 Del Method Room Air 10/03/22 07:29 BMI result Body Mass Index 48.6 Eyes: Other: Anicteric Chest: Other: chest breath sounds bilaterally, HS 1 and 2. GI: Other: Very corpulent abdomen. Mild right upper quadrant tenderness. No evidence of any guarding rebound or rigidity. Results Labs 10/01/22 05:21 10/02/22 10:16 Labs: Abnormal lab results 10/02/22 10/02/22 10/02/22 Range/Units 10:16 10:49 12:45 BUN 4 L (9-16) mg/dL POC Glucose 426 H* 380 H* (60-115) mg/dL Random Glucose 425 H* (60-115) mg/dL Total Protein 5.0 L (6.5-8.0) g/dL Albumin 2.9 L (3.5-5.0) g/dL 10/02/22 10/02/22 10/02/22 Range/Units 15:08 17:50 20:33 BUN (9-16) mg/dL POC Glucose 301 H 322 H 328 H (60-115) mg/dL Random Glucose (60-115) mg/dL Total Protein (6.5-8.0) g/dL Albumin (3.5-5.0) g/dL 10/03/22 10/03/22 Range/Units 02:53 07:34 BUN (9-16) mg/dL POC Glucose 276 H 289 H (60-115) mg/dL Random Glucose (60-115) mg/dL Total Protein (6.5-8.0) g/dL Albumin (3.5-5.0) g/dL BMP 10/02/22 10:16 Sodium 137 Potassium 3.3 D Chloride 105 Carbon Dioxide 23 BUN 4 L Creatinine 1.02 Calcium 9.1 D Liver Function 10/02/22 Range/Units 10:16 Total Bilirubin 0.2 (0.0-1.0) mg/dL Direct Bilirubin < 0.2 (0.0-0.5) mg/dL AST 15 (5-31) U/L ALT 17 (0-31) U/L Alkaline Phosphatase 75 (39-117) U/L Albumin 2.9 L (3.5-5.0) g/dL Urine 09/30/22 Range/Units 21:27 Urine Color Yellow Urine Appearance Clear Urine pH 5.5 (5.0-9.0) Ur Specific [place] >= 1.030 H (1.005-1.025) Urine Protein 100 (2+) H (Neg-Trace) mg/dL Urine Glucose (UA) >=1000 H (Negative) mg/dL All other labs normal. Assessment and Plan (1) Biliary colic: Status: Acute Plan Risks, benefits, alternatives of laparoscopic possible open cholecystectomy reviewed with the patient and her (who was on the phone during the entire evaluation ), which included but not limited to bleeding, infection, recurrence of symptoms, numbness, pain, scarring, bile duct injury or leak and the patient wishes to proceed. All questions were answered. Arrangements will be made for this for tomorrow. Time Spent With Patient Time: Total time managing care of this patient today ____ minutes. Procedures Date of Service Date of Service: 10/03/22
[2022-10-03] MEDS: 0.9 % Sodium Chloride Flush 3 ML SYRINGE IVFLUSH ×2 (09:36→17:38)
--- NOTE | 2022-10-03 10:24 | P.PNIM_ITS ---
Subjective Subjective Date of Service: 10/03/22 Interval History: Follow-up on DKA, cholelithiasis and possible choledocholithiasis. Interval history: Intermittent abdominal pain, blood sugars are better Physical Exam Vital Signs: Vital Signs: Last Vital Signs Temp 96.9 F 10/03/22 07:29 Pulse 71 10/03/22 07:29 Resp 16 10/03/22 07:29 BP 172/76 H 10/03/22 07:29 Pulse Ox 97 10/03/22 07:29 O2 Del Method Room Air 10/03/22 07:29 BMI result Body Mass Index 48.6 Const: Other: General: AO X 3, no acute distress Resp: CTA bilateral CVS: S1,S2,RRR GI: +BS, NT, mild abdominal tenderness Skin: No rash Neuro: motor grossly intact Psych: appropriate affect Objective Data Active Medications Acetaminophen (Acetaminophen 325 Mg Tablet) 650 mg PO Q6H PRN PRN Reason: Pain, Mild (Pain Scale 1-3) Last Admin: 10/02/22 16:46 Dose: 650 mg Documented By: FARZANA Acetaminophen (Acetaminophen Supp 650 Mg Supp.Rect) 650 mg [place] Q6H PRN PRN Reason: Pain, Mild (Pain Scale 1-3) Enoxaparin Sodium (Enoxaparin Sodium 40 Mg/0.4 Ml Syringe) 40 mg SUBCUT Q24H [facility] Last Admin: 10/03/22 03:28 Dose: Not Given Documented By: CHANNING Non-Admin Reason: planned surgery Glucose (Glucose Gel 15 Gm Gel..Gram.) 15 gm PO Q15M PRN; Protocol PRN Reason: per Hypoglycemia Standing Ord. Dextrose (D10) 250 mls @ 750 mls/hr IV Q15M PRN; Protocol PRN Reason: per Hypoglycemia Standing Ord. Insulin Glargine (Insulin Glargine,Hum.Rec.Anlog 100 Unit/Ml 10 Ml Vial) 33 unit SUBCUT BEDTIME [facility] Last Admin: 10/02/22 20:48 Dose: 33 unit Documented By: CHANNING Insulin Human Lispro (Insulin Lispro 100 Unit/Ml 3 Ml Vial) 0.1 - 10 unit SUBCUT QIDACHS [facility]; Protocol Last Admin: 10/03/22 08:18 Dose: 6 unit Documented By: CHANTE Insulin Human Lispro (Insulin Lispro 100 Unit/Ml 3 Ml Vial) 5 unit SUBCUT QIDACHS [facility] Last Admin: 10/03/22 08:08 Dose: Not Given Documented By: CHANTE Non-Admin Reason: npo. hold per . Melatonin (Melatonin 3 Mg Tablet) 6 mg PO BEDTIME PRN PRN Reason: Insomnia Last Admin: 10/02/22 23:22 Dose: 6 mg Documented By: CHUCHOORALB Metformin HCl (Metformin Hcl 500 Mg Tablet) 500 mg PO BIDWM [facility] Last Admin: 10/03/22 09:36 Dose: Not Given Documented By: CHANTE Non-Admin Reason: NPO Ondansetron HCl (Ondansetron Hcl 4 Mg/2 Ml Vial) 4 mg IVPUSH Q8H PRN PRN Reason: Nausea and Vomiting Last Admin: 10/01/22 06:28 Dose: 4 mg Documented By: BRYAN Simethicone (Simethicone 80 Mg Tab.Chew) 80 mg PO QIDWMHS PRN PRN Reason: bloating Last Admin: 10/02/22 16:46 Dose: 80 mg Documented By: FARZANA Sodium Chloride (0.9 % Sodium Chloride Flush 3 Ml Syringe) 3 ml IVFLUSH QSHIFT [facility] Last Admin: 10/03/22 09:36 Dose: 3 ml Documented By: CHANTE Labs 10/01/22 05:21 10/02/22 10:16 Labs: Laboratory Results - last 24 hr 10/02/22 10/02/22 10/02/22 10:16 10:49 12:45 Anion Gap 12 Estim Creat Clear Calc 88.8 Estimated GFR 57 POC Glucose 426 H* 380 H* Random Glucose 425 H* Calcium 9.1 D Total Bilirubin 0.2 Direct Bilirubin < 0.2 AST 15 ALT 17 Alkaline Phosphatase 75 Total Protein 5.0 L Albumin 2.9 L 10/02/22 10/02/22 10/02/22 15:08 17:50 20:33 Anion Gap Estim Creat Clear Calc Estimated GFR POC Glucose 301 H 322 H 328 H Random Glucose Calcium Total Bilirubin Direct Bilirubin AST ALT Alkaline Phosphatase Total Protein Albumin 10/03/22 10/03/22 02:53 07:34 Anion Gap Estim Creat Clear Calc Estimated GFR POC Glucose 276 H 289 H Random Glucose Calcium Total Bilirubin Direct Bilirubin AST ALT Alkaline Phosphatase Total Protein Albumin Microbiology Microbiology Results: Microbiology 09/30/22 22:00 Blood Culture - Preliminary Blood - Venous No growth after 48 hours. 09/30/22 21:59 Blood Culture - Preliminary Blood - Venous No growth after 48 hours. Assessment and Plan (1) Biliary colic: Status: Acute (2) Choledocholithiasis: Status: Acute (3) Diabetes mellitus: Status: Acute Plan 52-year-old female with pertinent history of diabetes, not on prescription medications who presents to the emergency department for evaluation of abdominal pain and nausea. #? Diabetic ketoacidosis.? Due to noncompliance with antihyperglycemics.?Treated with IV fluid, insulin, DKA should be resolved. To continue Lantus, and short acting insulin which will be prescribed at dischare. Start Metformin 500 bid, follow sugars closely # cholelithiasis/choledocholithiasis--surgery recommend cholecystectomy plan for today #Morbid obesity--weight loss advised through exercise, and calorie restriction to minimize negative health effects DVT prophylaxis: Lovenox Full code Diabetic diet inpat for DKA, cholelithiasis and choledocholithiasis managemnt with surge Time Spent With Patient Time: Total time managing care of this patient today ____ minutes. Quality Stroke Does the patient have a stroke diagnosis?: No VTE Prior VTE?: No VTE Risk Level:: Medical - moderate - high VTE Device Contraindication: Treatment Not Indicated VTE Drug Contraindication: N/A - Med Ordered
[2022-10-03 11:29] LABS: Glucose, Whole Blood 228 mg/dL (60-115)
--- NOTE | 2022-10-03 12:37 | HO.ANESPROP2 ---
HPI - Anesthesia Eval Consult details Narrative: cholelithiasis PMF Active Problems Active Problems: All Active Problems (Updated 10/03/22 @ 09:05 by Connor Kelley MD) Biliary colic (Acute) Choledocholithiasis (Acute) Diabetes mellitus (Acute) Abdominal pain (Acute) DKA (diabetic ketoacidosis) (Acute) Cholelithiasis (Acute) Past Medical History Medical History Diabetes mellitus Family History Family history of problems with anesthesia: No Surgical History History of Problems with Anesthesia: No Social History Social History Household Members: Spouse Housing: House Do you presently have visiting nurse or other home services: No Patient Tobacco Use Status: Former Tobacco user Quit Date: 5 years service: No Current occupational status: unemployed Meds Allergies Allergy/AdvReac Type Severity Reaction Status Date / Time No Known Allergies Allergy Verified 09/30/22 18:01 Active Medications: Current Medications Acetaminophen (Acetaminophen 325 Mg Tablet) 650 mg PO Q6H PRN PRN Reason: Pain, Mild (Pain Scale 1-3) Last Admin: 10/02/22 16:46 Dose: 650 mg Acetaminophen (Acetaminophen Supp 650 Mg Supp.Rect) 650 mg NE Q6H PRN PRN Reason: Pain, Mild (Pain Scale 1-3) Enoxaparin Sodium (Enoxaparin Sodium 40 Mg/0.4 Ml Syringe) 40 mg SUBCUT Q24H [facility] Last Admin: 10/03/22 03:28 Dose: Not Given Glucose (Glucose Gel 15 Gm Gel..Gram.) 15 gm PO Q15M PRN; Protocol PRN Reason: per Hypoglycemia Standing Ord. Dextrose (D10) 250 mls @ 750 mls/hr IV Q15M PRN; Protocol PRN Reason: per Hypoglycemia Standing Ord. Insulin Glargine (Insulin Glargine,Hum.Rec.Anlog 100 Unit/Ml 10 Ml Vial) 33 unit SUBCUT BEDTIME [facility] Last Admin: 10/02/22 20:48 Dose: 33 unit Insulin Human Lispro (Insulin Lispro 100 Unit/Ml 3 Ml Vial) 0.1 - 10 unit SUBCUT QIDACHS [facility]; Protocol Last Admin: 10/03/22 11:41 Dose: Not Given Insulin Human Lispro (Insulin Lispro 100 Unit/Ml 3 Ml Vial) 5 unit SUBCUT QIDACHS [facility] Last Admin: 10/03/22 11:41 Dose: Not Given Melatonin (Melatonin 3 Mg Tablet) 6 mg PO BEDTIME PRN PRN Reason: Insomnia Last Admin: 10/02/22 23:22 Dose: 6 mg Metformin HCl (Metformin Hcl 500 Mg Tablet) 500 mg PO BIDWM [facility] Last Admin: 10/03/22 09:36 Dose: Not Given Ondansetron HCl (Ondansetron Hcl 4 Mg/2 Ml Vial) 4 mg IVPUSH Q8H PRN PRN Reason: Nausea and Vomiting Last Admin: 10/01/22 06:28 Dose: 4 mg Simethicone (Simethicone 80 Mg Tab.Chew) 80 mg PO QIDWMHS PRN PRN Reason: bloating Last Admin: 10/02/22 16:46 Dose: 80 mg Sodium Chloride (0.9 % Sodium Chloride Flush 3 Ml Syringe) 3 ml IVFLUSH [facility] Last Admin: 10/03/22 09:36 Dose: 3 ml Home Medications Medication Instructions Recorded Confirmed Last Taken Type berberine-herbal comb no.18 500 mg PO BID 10/01/22 10/01/22 Unknown History Exam Exam Date and Time: October 03, 2022 1237 Height,Weight and Vital Signs: Height 5 ft 5 in Weight 132.6 kg Last Vital Signs Temp 98.0 F 10/03/22 11:48 Pulse 99 10/03/22 11:48 Resp 18 10/03/22 11:48 BP 182/84 H 10/03/22 11:48 Pulse Ox 96 10/03/22 11:48 O2 Del Method Room Air 10/03/22 11:48 Pertinent Lab Results Pertinent Lab Results: Laboratory Tests 09/30/22 09/30/22 09/30/22 18:05 18:45 18:45 WBC 9.1 RBC 5.55 H Hgb 15.9 Hct 47.7 H MCV 85.9 MCH 28.6 MCHC 33.3 RDW 13.3 Plt Count 296 MPV 10.2 Immature Gran % (Auto) 0.5 H Neut % (Auto) 64.8 Lymph % (Auto) 25.4 [place] % (Auto) 7.3 Eos % (Auto) 1.3 Baso % (Auto) 0.7 Lymph # (Auto) 2.3 [place] # (Auto) 0.7 Eos # (Auto) 0.1 Baso # (Auto) 0.1 Abs Immat Gran (auto) 0.05 H Absolute Neuts (auto) 5.9 Absolute Nucleated RBC 0.000 Nucleated RBC % (auto) 0.0 VBG pH VBG pCO2 VBG pO2 VBG HCO3 VBG O2 Saturation VBG Base Excess Sodium 135 Potassium 4.1 Chloride 100 Carbon Dioxide 16 L Anion Gap 23 H BUN 8 L Creatinine 1.22 Estim Creat Clear Calc 74.2 Estimated GFR 46 POC Glucose 307 H Random Glucose 346 H Estimat Average Glucose Hemoglobin A1c % Calcium 10.1 Magnesium 1.9 Total Bilirubin 0.4 Direct Bilirubin 0.1 AST 12 ALT 15 Alkaline Phosphatase 96 Total Protein 7.3 Albumin 4.1 Lipase 25 Urine Color Urine Appearance Urine pH Ur Specific [place] Urine Protein Urine Glucose (UA) Urine Ketones Urine Blood Urine Nitrite Ur Leukocyte Esterase Urine RBC Urine WBC Ur Squamous Epith Cells Urine Bacteria Hyaline Casts Acetone, Qual 09/30/22 09/30/22 09/30/22 21:15 21:27 21:58 WBC RBC Hgb Hct MCV MCH MCHC RDW Plt Count MPV Immature Gran % (Auto) Neut % (Auto) Lymph % (Auto) [place] % (Auto) Eos % (Auto) Baso % (Auto) Lymph # (Auto) [place] # (Auto) Eos # (Auto) Baso # (Auto) Abs Immat Gran (auto) Absolute Neuts (auto) Absolute Nucleated RBC Nucleated RBC % (auto) VBG pH VBG pCO2 VBG pO2 VBG HCO3 VBG O2 Saturation VBG Base Excess Sodium Potassium Chloride Carbon Dioxide Anion Gap BUN Creatinine Estim Creat Clear Calc Estimated GFR POC Glucose 324 H Random Glucose Estimat Average Glucose Hemoglobin A1c % Calcium Magnesium Total Bilirubin Direct Bilirubin AST ALT Alkaline Phosphatase Total Protein Albumin Lipase Urine Color Yellow Urine Appearance Clear Urine pH 5.5 Ur Specific [place] >= 1.030 H Urine Protein 100 (2+) H Urine Glucose (UA) >=1000 H Urine Ketones >=160 Urine Blood Negative Urine Nitrite Negative Ur Leukocyte Esterase Negative Urine RBC 0-2 Urine WBC 0-5 Ur Squamous Epith Cells 3-5 Urine Bacteria None Seen Hyaline Casts 11-20 Acetone, Qual Small H 09/30/22 09/30/22 09/30/22 21:59 23:48 23:50 WBC RBC Hgb Hct MCV MCH MCHC RDW Plt Count MPV Immature Gran % (Auto) Neut % (Auto) Lymph % (Auto) [place] % (Auto) Eos % (Auto) Baso % (Auto) Lymph # (Auto) [place] # (Auto) Eos # (Auto) Baso # (Auto) Abs Immat Gran (auto) Absolute Neuts (auto) Absolute Nucleated RBC Nucleated RBC % (auto) VBG pH 7.39 VBG pCO2 16 VBG pO2 93 VBG HCO3 10 L VBG O2 Saturation 99.0 VBG Base Excess -11.3 Sodium 134 L Potassium 3.9 Chloride 103 Carbon Dioxide 13 L Anion Gap 22 H BUN 7 L Creatinine 1.12 Estim Creat Clear Calc 80.9 Estimated GFR 51 POC Glucose Random Glucose 332 H Estimat Average Glucose Hemoglobin A1c % Calcium 9.4 D Magnesium Total Bilirubin 0.4 Direct Bilirubin AST 13 ALT 16 Alkaline Phosphatase 85 Total Protein 7.3 Albumin 3.8 Lipase Cancelled Urine Color Urine Appearance Urine pH Ur Specific [place] Urine Protein Urine Glucose (UA) Urine Ketones Urine Blood Urine Nitrite Ur Leukocyte Esterase Urine RBC Urine WBC Ur Squamous Epith Cells Urine Bacteria Hyaline Casts Acetone, Qual 10/01/22 10/01/22 10/01/22 01:39 02:34 03:50 WBC RBC Hgb Hct MCV MCH MCHC RDW Plt Count MPV Immature Gran % (Auto) Neut % (Auto) Lymph % (Auto) [place] % (Auto) Eos % (Auto) Baso % (Auto) Lymph # (Auto) [place] # (Auto) Eos # (Auto) Baso # (Auto) Abs Immat Gran (auto) Absolute Neuts (auto) Absolute Nucleated RBC Nucleated RBC % (auto) VBG pH VBG pCO2 VBG pO2 VBG HCO3 VBG O2 Saturation VBG Base Excess Sodium 137 Potassium 4.7 D Chloride 104 Carbon Dioxide 17 L Anion Gap 21 H BUN 7 L Creatinine 1.35 Estim Creat Clear Calc 67.1 Estimated GFR 41 POC Glucose 272 H 284 H Random Glucose 325 H Estimat Average Glucose Hemoglobin A1c % Calcium 9.1 Magnesium Total Bilirubin 0.3 Direct Bilirubin AST 15 ALT 12 Alkaline Phosphatase 80 Total Protein 6.4 L Albumin 3.5 Lipase Urine Color Urine Appearance Urine pH Ur Specific [place] Urine Protein Urine Glucose (UA) Urine Ketones Urine Blood Urine Nitrite Ur Leukocyte Esterase Urine RBC Urine WBC Ur Squamous Epith Cells Urine Bacteria Hyaline Casts Acetone, Qual 10/01/22 10/01/22 10/01/22 05:20 05:20 05:21 WBC 9.5 RBC 4.89 Hgb 14.2 Hct 43.2 MCV 88.3 MCH 29.0 MCHC 32.9 RDW 13.6 Plt Count 281 MPV 11.2 Immature Gran % (Auto) 0.4 Neut % (Auto) 59.8 Lymph % (Auto) 29.0 [place] % (Auto) 9.1 Eos % (Auto) 1.3 Baso % (Auto) 0.4 Lymph # (Auto) 2.8 [place] # (Auto) 0.9 Eos # (Auto) 0.1 Baso # (Auto) 0.0 Abs Immat Gran (auto) 0.04 H Absolute Neuts (auto) 5.7 Absolute Nucleated RBC 0.000 Nucleated RBC % (auto) 0.0 VBG pH VBG pCO2 VBG pO2 VBG HCO3 VBG O2 Saturation VBG Base Excess Sodium 137 Potassium 4.6 Chloride 108 Carbon Dioxide 17 L Anion Gap 17 BUN 6 L Creatinine 1.29 Estim Creat Clear Calc 70.2 Estimated GFR 43 POC Glucose Random Glucose 357 H* Estimat Average Glucose 249 Hemoglobin A1c % 10.3 Calcium 8.4 D Magnesium Total Bilirubin Direct Bilirubin AST ALT Alkaline Phosphatase Total Protein Albumin Lipase Urine Color Urine Appearance Urine pH Ur Specific [place] Urine Protein Urine Glucose (UA) Urine Ketones Urine Blood Urine Nitrite Ur Leukocyte Esterase Urine RBC Urine WBC Ur Squamous Epith Cells Urine Bacteria Hyaline Casts Acetone, Qual 10/01/22 10/01/22 10/01/22 06:18 08:01 08:47 WBC RBC Hgb Hct MCV MCH MCHC RDW Plt Count MPV Immature Gran % (Auto) Neut % (Auto) Lymph % (Auto) [place] % (Auto) Eos % (Auto) Baso % (Auto) Lymph # (Auto) [place] # (Auto) Eos # (Auto) Baso # (Auto) Abs Immat Gran (auto) Absolute Neuts (auto) Absolute Nucleated RBC Nucleated RBC % (auto) VBG pH VBG pCO2 VBG pO2 VBG HCO3 VBG O2 Saturation VBG Base Excess Sodium Potassium Chloride Carbon Dioxide Anion Gap BUN Creatinine Estim Creat Clear Calc Estimated GFR POC Glucose 339 H 277 H 283 H Random Glucose Estimat Average Glucose Hemoglobin A1c % Calcium Magnesium Total Bilirubin Direct Bilirubin AST ALT Alkaline Phosphatase Total Protein Albumin Lipase Urine Color Urine Appearance Urine pH Ur Specific [place] Urine Protein Urine Glucose (UA) Urine Ketones Urine Blood Urine Nitrite Ur Leukocyte Esterase Urine RBC Urine WBC Ur Squamous Epith Cells Urine Bacteria Hyaline Casts Acetone, Qual 10/01/22 10/01/22 10/01/22 11:20 16:02 18:37 WBC RBC Hgb Hct MCV MCH MCHC RDW Plt Count MPV Immature Gran % (Auto) Neut % (Auto) Lymph % (Auto) [place] % (Auto) Eos % (Auto) Baso % (Auto) Lymph # (Auto) [place] # (Auto) Eos # (Auto) Baso # (Auto) Abs Immat Gran (auto) Absolute Neuts (auto) Absolute Nucleated RBC Nucleated RBC % (auto) VBG pH VBG pCO2 VBG pO2 VBG HCO3 VBG O2 Saturation VBG Base Excess Sodium Potassium Chloride Carbon Dioxide Anion Gap BUN Creatinine Estim Creat Clear Calc Estimated GFR POC Glucose 341 H 296 H 399 H* Random Glucose Estimat Average Glucose Hemoglobin A1c % Calcium Magnesium Total Bilirubin Direct Bilirubin AST ALT Alkaline Phosphatase Total Protein Albumin Lipase Urine Color Urine Appearance Urine pH Ur Specific [place] Urine Protein Urine Glucose (UA) Urine Ketones Urine Blood Urine Nitrite Ur Leukocyte Esterase Urine RBC Urine WBC Ur Squamous Epith Cells Urine Bacteria Hyaline Casts Acetone, Qual 10/02/22 10/02/22 10/02/22 00:13 02:50 06:58 WBC RBC Hgb Hct MCV MCH MCHC RDW Plt Count MPV Immature Gran % (Auto) Neut % (Auto) Lymph % (Auto) [place] % (Auto) Eos % (Auto) Baso % (Auto) Lymph # (Auto) [place] # (Auto) Eos # (Auto) Baso # (Auto) Abs Immat Gran (auto) Absolute Neuts (auto) Absolute Nucleated RBC Nucleated RBC % (auto) VBG pH VBG pCO2 VBG pO2 VBG HCO3 VBG O2 Saturation VBG Base Excess Sodium Potassium Chloride Carbon Dioxide Anion Gap BUN Creatinine Estim Creat Clear Calc Estimated GFR POC Glucose 405 H* 284 H 271 H Random Glucose Estimat Average Glucose Hemoglobin A1c % Calcium Magnesium Total Bilirubin Direct Bilirubin AST ALT Alkaline Phosphatase Total Protein Albumin Lipase Urine Color Urine Appearance Urine pH Ur Specific [place] Urine Protein Urine Glucose (UA) Urine Ketones Urine Blood Urine Nitrite Ur Leukocyte Esterase Urine RBC Urine WBC Ur Squamous Epith Cells Urine Bacteria Hyaline Casts Acetone, Qual 10/02/22 10/02/22 10/02/22 10:16 10:49 12:45 WBC RBC Hgb Hct MCV MCH MCHC RDW Plt Count MPV Immature Gran % (Auto) Neut % (Auto) Lymph % (Auto) [place] % (Auto) Eos % (Auto) Baso % (Auto) Lymph # (Auto) [place] # (Auto) Eos # (Auto) Baso # (Auto) Abs Immat Gran (auto) Absolute Neuts (auto) Absolute Nucleated RBC Nucleated RBC % (auto) VBG pH VBG pCO2 VBG pO2 VBG HCO3 VBG O2 Saturation VBG Base Excess Sodium 137 Potassium 3.3 D Chloride 105 Carbon Dioxide 23 Anion Gap 12 BUN 4 L Creatinine 1.02 Estim Creat Clear Calc 88.8 Estimated GFR 57 POC Glucose 426 H* 380 H* Random Glucose 425 H* Estimat Average Glucose Hemoglobin A1c % Calcium 9.1 D Magnesium Total Bilirubin 0.2 Direct Bilirubin < 0.2 AST 15 ALT 17 Alkaline Phosphatase 75 Total Protein 5.0 L Albumin 2.9 L Lipase Urine Color Urine Appearance Urine pH Ur Specific [place] Urine Protein Urine Glucose (UA) Urine Ketones Urine Blood Urine Nitrite Ur Leukocyte Esterase Urine RBC Urine WBC Ur Squamous Epith Cells Urine Bacteria Hyaline Casts Acetone, Qual 10/02/22 10/02/22 10/02/22 15:08 17:50 20:33 WBC RBC Hgb Hct MCV MCH MCHC RDW Plt Count MPV Immature Gran % (Auto) Neut % (Auto) Lymph % (Auto) [place] % (Auto) Eos % (Auto) Baso % (Auto) Lymph # (Auto) [place] # (Auto) Eos # (Auto) Baso # (Auto) Abs Immat Gran (auto) Absolute Neuts (auto) Absolute Nucleated RBC Nucleated RBC % (auto) VBG pH VBG pCO2 VBG pO2 VBG HCO3 VBG O2 Saturation VBG Base Excess Sodium Potassium Chloride Carbon Dioxide Anion Gap BUN Creatinine Estim Creat Clear Calc Estimated GFR POC Glucose 301 H 322 H 328 H Random Glucose Estimat Average Glucose Hemoglobin A1c % Calcium Magnesium Total Bilirubin Direct Bilirubin AST ALT Alkaline Phosphatase Total Protein Albumin Lipase Urine Color Urine Appearance Urine pH Ur Specific [place] Urine Protein Urine Glucose (UA) Urine Ketones Urine Blood Urine Nitrite Ur Leukocyte Esterase Urine RBC Urine WBC Ur Squamous Epith Cells Urine Bacteria Hyaline Casts Acetone, Qual 10/03/22 10/03/22 10/03/22 02:53 07:34 11:22 WBC RBC Hgb Hct MCV MCH MCHC RDW Plt Count MPV Immature Gran % (Auto) Neut % (Auto) Lymph % (Auto) [place] % (Auto) Eos % (Auto) Baso % (Auto) Lymph # (Auto) [place] # (Auto) Eos # (Auto) Baso # (Auto) Abs Immat Gran (auto) Absolute Neuts (auto) Absolute Nucleated RBC Nucleated RBC % (auto) VBG pH VBG pCO2 VBG pO2 VBG HCO3 VBG O2 Saturation VBG Base Excess Sodium Potassium Chloride Carbon Dioxide Anion Gap BUN Creatinine Estim Creat Clear Calc Estimated GFR POC Glucose 276 H 289 H 228 H Random Glucose Estimat Average Glucose Hemoglobin A1c % Calcium Magnesium Total Bilirubin Direct Bilirubin AST ALT Alkaline Phosphatase Total Protein Albumin Lipase Urine Color Urine Appearance Urine pH Ur Specific [place] Urine Protein Urine Glucose (UA) Urine Ketones Urine Blood Urine Nitrite Ur Leukocyte Esterase Urine RBC Urine WBC Ur Squamous Epith Cells Urine Bacteria Hyaline Casts Acetone, Qual Airway Mallampati Class: II Neck ROM: Limited Heart: rrr Lungs: cta Assessment and Plan Assessment Anesthesia Assessment: Anesthesia Plan Discussed Final Anesthetic Review Family History of Problems with Anesthesia: No History of Problems with Anesthesia: No NPO: Yes ASA Class: III Final Preanesthetic Review: No Changes in Pt Med Stat, Meds/Allgs Chart Reviewed, Consent Obtained/Reviewed and Anes Risks/Benef Reviewed Patient Risk: Intermediate Procedure Risk: Intermediate Anesthetic Plan Anesthetic Plan: GA and Agree w/ Assess. and Plan Disposition: Standard PACU
[2022-10-03 12:44] LABS: Anion Gap 12 (12-20); Carbon Dioxide 26 mmol/L (22-29); Chloride 107 mmol/L (96-108); Sodium 142 mmol/L (135-145)
[2022-10-03 12:53] LABS: Glucose, Whole Blood 247 mg/dL (60-115)
--- NOTE | 2022-10-03 13:16 | MHC.CM.PN ---
PER MD ROUNDS, PT WILL NOT BE READY TO DC TODAY, PLAN FOR GALL BLADDER SURGERY DCP: HOME WITH NO SERVICES VIA FAMILY TRANSPORT
--- NOTE | 2022-10-03 14:20 | W.PM.OPN ---
Operative Note Operative Note Date of Service: 10/03/22 Narrative: Preoperative diagnosis: [] acute cholecystitis Postop diagnosis: [] same Procedure [] laparoscopic cholecystectomy Surgeon: [] Warren Piping Supervisor: [] Surgitec Findings markedly corpulent abdomen, edematous inflamed gallbladder. markedly intrahepatic gallbladder. Procedure ;The patient brought to the operating room, placed on operative table in supine position, after adequate level of general anesthesia was induced, the patient's abdomen was prepped and draped in usual sterile fashion. Using a supraumbilical curvilinear incision, Green technique was used to insufflate the abdominal cavity to 15 mm of CO2. Upper midline and right sub- costal ports were placed under direct laparoscopic view, the patient was placed in reverse Trendelenburg position, tilted to the left. Markedly turgid inflamed gallbladder was initially decompressed with an aspirating device. It was then grasped with laparoscopic graspers, and retracted superiorly and laterally. Soft omental adhesions were swept off the gallbladder words hilum was approached. Cystic artery and cystic duct were each identified ,circumferentially skeletonized andeach traced directly to the gallbladder and critical view obtained. Each was clipped proximally x2, distally x1, and transected . Gallbladder which was very intrahepatic was then cauterized from the gallbladder fossa using electro Bovie. Specimen was placed in an Endo-Catch bag, a retrieved through the umbilical port. The abdominal cavity was copiously irrigated and secured hemostasis. All ports were removed under direct laparoscopic view. Wounds were closed the following manner; umbilical wound is fascia reapproximated using interrupted 0 Vicryl sutures. Skin wounds were closed using subcuticular 4-0 Vicryl sutures followed by Steri-Strips sterile dressings. Wounds were infiltrated 0.5% Marcaine at completion. Sponge, needle, and instrument counts reported correct. Patient tolerated the procedure well and emerged anesthesia stable condition. EBL minimal
[2022-10-03] MEDS: HYDROmorphone HCl 0.5 MG/0.5 ML SYRINGE IVPUSH ×2 (15:17→19:07)
[2022-10-03] MEDS: ondansetron HCL 4 MG/2 ML VIAL IVPUSH (15:17)
[2022-10-03 16:27] LABS: Glucose, Whole Blood 350 mg/dL (60-115)
[2022-10-03] MEDS: metFORMIN HCl 500 MG TABLET PO (17:38)
[2022-10-03] MEDS: Potassium Chloride Packet 20 MEQ PACKET 40 MEQ PO (17:52)
[2022-10-03 20:13] LABS: Glucose, Whole Blood 383 mg/dL (60-115)
[2022-10-03] MEDS: Insulin Glargine,Hum.rec.anlog 100 UNIT/ML 10 ML VIAL 40 UNIT SUBCUT (21:02)
[2022-10-03] MEDS: Simethicone 80 MG TAB.CHEW PO (22:14)
[2022-10-04 00:21] LABS: Glucose, Whole Blood 266 mg/dL (60-115)
[2022-10-04] MEDS: Acetaminophen 325 MG TABLET 650 MG PO ×3 (00:34→10:59)
[2022-10-04] MEDS: 0.9 % Sodium Chloride Flush 3 ML SYRINGE IVFLUSH ×2 (00:42→08:10)
[2022-10-04 02:58] VITALS: BP 127/60; PULSE 80; RESP 18; TEMP 36.1; O2SAT 95
[2022-10-04] MEDS: Enoxaparin Sodium 40 MG/0.4 ML SYRINGE SUBCUT (03:14)
[2022-10-04 04:24] LABS: Glucose, Whole Blood 224 mg/dL (60-115)
[2022-10-04 07:24] VITALS: BP 137/63; PULSE 72; RESP 20; TEMP 36.1; O2SAT 96
[2022-10-04 07:39] LABS: Glucose, Whole Blood 197 mg/dL (60-115)
[2022-10-04] MEDS: Insulin Lispro 100 UNIT/ML 3 ML VIAL SUBCUT ×4 (08:10→11:59)
[2022-10-04] MEDS: metFORMIN HCl 500 MG TABLET PO (08:10)
[2022-10-04 09:48] LABS: Anion Gap 15 (12-20); Blood Urea Nitrogen 5 mg/dL (9-16); Calcium 9.3 mg/dL (8.4-10.2); Carbon Dioxide 27 mmol/L (22-29); Chloride 104 mmol/L (96-108); Creatinine Clr Calc Pharmacy 109.1; Estimated Glomerular Filt Rate > 60; Glucose Random 297 mg/dL (60-115); Potassium 3.5 mmol/L (3.3-5.1); Sodium 142 mmol/L (135-145)
--- NOTE | 2022-10-04 10:24 | P.PNGS_ITS ---
Subjective Subjective Date of Service: 10/04/22 Interval history: underwent uneventful lap luz yesterday sore on incisions but says she is ok tolerating diet Physical Exam Vital Signs: Vital Signs: Last Vital Signs Temp 97 F 10/04/22 07:24 Pulse 72 10/04/22 07:24 Resp 20 10/04/22 07:24 BP 137/63 10/04/22 07:24 Pulse Ox 96 10/04/22 07:24 O2 Del Method Room Air 10/04/22 07:24 O2 Flow Rate 8 10/03/22 14:27 BMI result Body Mass Index 48.6 Const: General: comfortable and no acute distress Resp: Effort & Inspection: normal respiratory effort Cardio: Rate: regular rate GI: Other: dressings dry Palpation (GI): Soft to palpation, not firm and no guarding Objective Data Active Medications Acetaminophen (Acetaminophen 325 Mg Tablet) 650 mg PO Q6H PRN PRN Reason: Pain, Mild (Pain Scale 1-3) Last Admin: 10/04/22 05:53 Dose: 650 mg Documented By: RICKI Acetaminophen (Acetaminophen Supp 650 Mg Supp.Rect) 650 mg MT Q6H PRN PRN Reason: Pain, Mild (Pain Scale 1-3) Enoxaparin Sodium (Enoxaparin Sodium 40 Mg/0.4 Ml Syringe) 40 mg SUBCUT Q24H COUNT [facility]CLUD[facility] Last Admin: 10/04/22 03:14 Dose: 40 mg Documented By: RICKI Glucose (Glucose Gel 15 Gm Gel..Gram.) 15 gm PO Q15M PRN; Protocol PRN Reason: per Hypoglycemia Standing Ord. Hydromorphone HCl (Hydromorphone Hcl 0.5 Mg/0.5 Ml Syringe) 0.5 mg IVPUSH Q5M PRN; Protocol PRN Reason: Pain, Severe (Pain Scale 7-10) Last Admin: 10/03/22 19:07 Dose: 0.5 mg Documented By: VIVIANA Dextrose (D10) 250 mls @ 750 mls/hr IV Q15M PRN; Protocol PRN Reason: per Hypoglycemia Standing Ord. Insulin Glargine (Insulin Glargine,Hum.Rec.Anlog 100 Unit/Ml 10 Ml Vial) 40 unit SUBCUT BEDTIME COUNT [facility]CLUDES [facility] Last Admin: 10/03/22 21:02 Dose: 40 unit Documented By: VIVIANA Insulin Human Lispro (Insulin Lispro 100 Unit/Ml 3 Ml Vial) 0.1 - 10 unit SUBCUT [facility]; Protocol Last Admin: 10/04/22 08:10 Dose: 2 unit Documented By: TIFFANIE Insulin Human Lispro (Insulin Lispro 100 Unit/Ml 3 Ml Vial) 5 unit SUBCUT [facility] Last Admin: 10/04/22 08:10 Dose: 5 unit Documented By: TIFFANIE Melatonin (Melatonin 3 Mg Tablet) 6 mg PO BEDTIME PRN PRN Reason: Insomnia Last Admin: 10/02/22 23:22 Dose: 6 mg Documented By: CHUCHOORALSri Metformin HCl (Metformin Hcl 500 Mg Tablet) 500 mg PO BIDWM COUNT INCLUDES THE [facility] Last Admin: 10/04/22 08:10 Dose: 500 mg Documented By: TIFFANIE Ondansetron HCl (Ondansetron Hcl 4 Mg/2 Ml Vial) 4 mg IVPUSH Q8H PRN PRN Reason: Nausea and Vomiting Last Admin: 10/03/22 15:17 Dose: 4 mg Documented By: BETH Ondansetron HCl (Ondansetron Hcl 4 Mg/2 Ml Vial) 4 mg IVPUSH ONCE PRN PRN Reason: Nausea and Vomiting Simethicone (Simethicone 80 Mg Tab.Chew) 80 mg PO QIDWMHS PRN PRN Reason: bloating Last Admin: 10/03/22 22:14 Dose: 80 mg Documented By: VIVIANA Sodium Chloride (0.9 % Sodium Chloride Flush 3 Ml Syringe) 3 ml IVFLUSH [facility] Last Admin: 10/04/22 08:10 Dose: 3 ml Documented By: TIFFANIE Labs 10/01/22 05:21 10/04/22 09:22 Labs: Laboratory Results - last 24 hr 10/03/22 10/03/22 10/03/22 11:22 12:20 12:49 Anion Gap 12 Estim Creat Clear Calc Estimated GFR POC Glucose 228 H 247 H Random Glucose Calcium 10/03/22 10/03/22 10/04/22 16:23 20:01 00:15 Anion Gap Estim Creat Clear Calc Estimated GFR POC Glucose 350 H* 383 H* 266 H Random Glucose Calcium 10/04/22 10/04/22 10/04/22 04:19 07:28 09:22 Anion Gap 15 Estim Creat Clear Calc 109.1 Estimated GFR > 60 POC Glucose 224 H 197 H Random Glucose 297 H Calcium 9.3 Procedures Date of Service Date of Service: 10/04/22 Progress Note: A&P Assessment and plan (1) Biliary colic: Status: Acute Assessment and Plan: S/P lap luz doing well postop dressings dry ok to dc home from surgical standpoint I reviewed with her wound care instructions to ffup with Dr. Kelley Time Spent With Patient Time: Total time managing care of this patient today ____ minutes. Quality Stroke Does the patient have a stroke diagnosis?: No VTE Prior VTE?: No VTE Risk Level:: Medical - moderate - high VTE Device Contraindication: Treatment Not Indicated VTE Drug Contraindication: N/A - Med Ordered
[2022-10-04 11:27] LABS: Glucose, Whole Blood 265 mg/dL (60-115)
[2022-10-04 11:32] VITALS: BP 134/75; PULSE 82; RESP 18; TEMP 36.5; O2SAT 98
--- NOTE | 2022-10-04 11:33 | P.DS_ITS ---
DS: Providers Provider Date of Service: 10/04/22 Date of admission: 10/01/22 03:05 Primary care physician: None Physician Consults: 10/02/22 07:30 Consult to General Surgery Routine Consulting Provider: [facility] General Surgeons Reason for consultation: Cholelithiasis DS: Diagnosis Discharge Diagnosis (1) Biliary colic: Status: Acute DS: Summary Hospital Course Hospital Course: Chief Complaint: Abdominal Pain This is a 52-year-old female with pertinent history of diabetes, not on prescription medications who presents to the emergency department for evaluation of abdominal pain and nausea.? Patient states she stopped taking prescription medications for diabetes and instead is trying natural therapy for it.? She does have a history of DKA.? Patient states she had generalized abdominal discomfort on the day of presentation, nonradiating, constant and without any relieving factors.? Also had associated nausea with p.o. intake.? Patient states her bowel movements have becoming fewer since she started with keto diet 1 month ago.? She denies fever, chills, chest discomfort, palpitations, shortness of breath, changes in urinary habits. In the emergency department, patient was found to be in DKA Hospital course: #? Diabetic ketoacidosis.? Due to noncompliance with medications. She was reated with IV fluid, insulin and DKA has resolved. She has been restarted on insulin with Lantus to be change to levemir Pen at 45 units at night, sliding scale insulin with humalog quick pen, and Metformin ER 1000 mg daily, overall sugars have improve but she will continue to need medication adjustment for optimal sugar control. She has other diabetes med supplies (meter, test strips and other ). Her hemoglobin A1C is 10. # cholelithiasis and biliary colic, she underwent lap luz by Dr. Kelley on 10/03/22 and doing well post operatively, tolerating regular diet and will follow up with Dr. Kelley. Tramadol for pain, she is reluctant to take narcotics. #Morbid obesity--weight loss advised through exercise, and calorie restriction to minimize negative health effects Time Spent with Patient Time attestation: Total time managing care of this patient today ____ minutes. Discharge coordination time: Greater than 30 minutes Quality: Safe Use of Opioids Does Pt have an Active Cancer Diagnosis on the Problem List?: No Quality: Stroke Does the patient have a stroke diagnosis?: No Physical Exam Vital Signs: Vital Signs: Last Vital Signs Temp 97.7 F 10/04/22 11:32 Pulse 82 10/04/22 11:32 Resp 18 10/04/22 11:32 BP 134/75 10/04/22 11:32 Pulse Ox 98 10/04/22 11:32 O2 Del Method Room Air 10/04/22 11:32 O2 Flow Rate 8 10/03/22 14:27 BMI result Body Mass Index 48.6 Const: Other: General: AO X 3, no acute distress Resp: CTA bilateral CVS: S1,S2,RRR GI: +BS, NT, no distention Skin: No rash Neuro: motor grossly intact Psych: appropriate affect DS: Data Data Completed and Pending Pending studies at discharge: Pending at discharge 10/03/22 13:59 Surgical [PTH] Routine Labs on day of discharge: Laboratory Results - last 24 hr 10/03/22 10/03/22 10/03/22 12:20 12:49 16:23 Sodium 142 Potassium 3.0 L Chloride 107 Carbon Dioxide 26 Anion Gap 12 BUN Creatinine Estim Creat Clear Calc Estimated GFR POC Glucose 247 H 350 H* Random Glucose Calcium 10/03/22 10/04/22 10/04/22 20:01 00:15 04:19 Sodium Potassium Chloride Carbon Dioxide Anion Gap BUN Creatinine Estim Creat Clear Calc Estimated GFR POC Glucose 383 H* 266 H 224 H Random Glucose Calcium 10/04/22 10/04/22 10/04/22 07:28 09:22 11:23 Sodium 142 Potassium 3.5 Chloride 104 Carbon Dioxide 27 Anion Gap 15 BUN 5 L Creatinine 0.83 Estim Creat Clear Calc 109.1 Estimated GFR > 60 POC Glucose 197 H 265 H Random Glucose 297 H Calcium 9.3 Preliminary micro results at discharge 09/30/22 22:00 Blood Culture - Preliminary Blood - Venous No growth after 48 hours. 09/30/22 21:59 Blood Culture - Preliminary Blood - Venous No growth after 48 hours. Discharge Plan Discharge Anticipated Discharge Date/Time: 10/04/22 10:59 Patient Disposition: Home, Self-Care Discharge Diagnosis: DKA, cholelithiasis Referrals: Physician,None [Primary Care Provider] - 1 Week Connor Kelley MD [Physician] - 1 Week Discharge Medications: New metformin 1,000 mg tablet,ER jay.retention 24 hr 1,000 mg PO DAILY Qty: 30 0RF (DME) pen needle, diabetic 32 gauge x 1/4 needle Qty: 100 0RF Rx Instructions: Use four times a day or as directed. Levemir FlexPen 100 unit/mL (3 mL) insulin pen 45 unit subcut BEDTIME Qty: 15 3RF (DME) Contour Next Test Strips Strip See Rx Instructions .Route Qty: 70 2RF Rx Instructions: As directed insulin lispro [Humalog KwikPen Insulin] 100 unit/mL insulin pen 1 sliding scale dose subcut QIDACHS Qty: 15 2RF Rx Instructions: Blood Sugar: <150 - 0 units 151-200 - 2 units 201-250 - 4 units 251-300 - 6 units 301-350 - 8 units >350 - 10 units tramadol 50 mg Tablet 50 mg PO Q6H PRN (Reason: Pain, Severe (Pain Scale 7-10)) Qty: 20 0RF Continued berberine-herbal comb no.18 500 mg PO BID Discharge Orders: Discharge Order (Routine); Ordered 10/04/22 Ordered By: Misha Beckwith Diet: Advance to usual diet Activity on Discharge: As tolerated Stand Alone Forms: Patient Portal Discharge page Activity Restrictions/Additional Instructions: Ice to wound 20 minutes several times today and tomorrow. May shower in 2 days. Remove outside dressing only. Leave Steri-Strips intact. No strenuous activities Care Plan Goals: Full recovery from gallbladder surgery and control of diabetes Health Concerns: diabetes that is not controlled Plan of Treatment: take insulin and metformin as directed, check your sugars before meals and at bedtim follow up with a Primary care provider in a week Assessment: as above
--- NOTE | 2022-10-04 11:41 | MHC.CM.PN ---
pt dcd home with no skilled servceis
--- NOTE | 2022-10-05 12:17 | HO.POSTANES ---
Post Anesthesia Evaluation Post Anesthesia Evaluation Date of Service: 10/03/22 Anesthesia: General Endotracheal-GETA Mental Status: Awake Pain Control: Satisfactory Nausea/Vomiting: None Hydration: Adequate
== END 2022-10-04 13:17 | disposition home or self-care (01) | DRG 417 ==
LOC: HO.ED 22:27 → HO.EDOVER 10-01 03:09 → HO.S3 10-01 07:17
PROVIDERS: Anesthesiology; Physician Assistant; Surgery; Admitting Provider Student in an Organized Health Care Education/Training Program; Emergency Provider Emergency Medicine Emergency Medical Services; Visit Provider Internal Medicine
PROC: 0FT44ZZ Resection of Gallbladder, Percutaneous Endoscopic Approach (ICD-10-PCS; CPT 47562; principal; 2022-10-03 13:50)
DX: K80.62 Calculus of gallbladder and bile duct with acute cholecystitis without obstruction (principal); E11.10 Type 2 diabetes mellitus with ketoacidosis without coma; Z68.42 Body mass index [BMI] 45.0-49.9, adult; Z87.891 Personal history of nicotine dependence; E66.01 Morbid (severe) obesity due to excess calories; Z91.148 Patient's other noncompliance with medication regimen for other reason; Z71.3 Dietary counseling and surveillance
CPT/HCPCS: 36415; 74176; 76705; 80048; 80051; 80053; 80076; 81001; 82009; 82803; 82947; 83036; 83690; 83735; 85025; 87040; 88304; 99285; J0690; J1170; J1650; J1885; J2250; J2370; J2405; J2795; J3010

== ENCOUNTER → 2022-10-22 09:14 | Outpatient (BNVA) | payer OTHER, SELFPAY | PROVIDERS: Visit Provider Surgery ==